=== PATIENT | female | born 1980 | race Caucasian/White ===

== ENCOUNTER → 2017-10-03 16:35 | Outpatient (CLI) | payer OTHER, SELFPAY ==
[2017-10-03 17:48] LABS: Absolute Lymphocyte Count 2.72 X10^3/ul (0.83-4.51); Absolute Neutrophil Count 3.6 X10^3/uL (2.0-7.7); Basophil# 0.04 X10^3/uL; Basophil% 0.6 % (0-1); Eosinophil# 0.13 X10^3/uL; Eosinophils% 1.9 % (0-5); Hematocrit 41.7 % (37-47); Hemoglobin 13.8 g/dl (12.0-15.0); Lymphocyte # 2.72 X10^3/ul (4.0); Lymphocyte % 39.2 % (19-41); Mean Corp Hgb Conc 33.1 g/gl (32-36); Mean Corpuscular Hgb 30.3 pg (27.0-32.0); Mean Corpuscular Volume 91.4 fL (81-99); Mean Platelet Vol. 10.2 fl (6.2-12.0); Monocyte# 0.42 X10^3/uL; Monocyte% 6.1 % (0-10); Neutrophil # 3.63 X10^3/uL (2.7-7.7); Neutrophil % 52.2 % (47-70); Platelet Count 293 K/mm3 (150-450); RBC Distribution Width CV 13.5 % (11.6-14.6); RBC Distribution Width SD 44.5 fl (35.1-43.9); Red Blood Count 4.56 M/mm3 (4.2-5.4); White Blood Count 6.9 K/mm3 (4.4-11.0)
[2017-10-03 17:56] LABS: POSITIVE COUNT NO; POSITIVE DIFFERENTIAL NO; POSITIVE MORPHOLOGY NO
[2017-10-03 18:37] LABS: Follicle Stimulating Hormone 31.9 mIU/mL; Thyroid Stim Hormone (TSH) 1.33 uIU/mL (0.358-3.74)
== END ==
PROVIDERS: Family Provider Internal Medicine; PCP Internal Medicine; Visit Provider Nurse Practitioner Women's Health
DX: R23.2 Flushing (principal); R63.5 Abnormal weight gain; R53.83 Other fatigue
CPT/HCPCS: 36415; 83001; 84443; 85025

== ENCOUNTER → 2018-05-03 06:56 | Outpatient (CLI) | payer OTHER, SELFPAY ==
--- NOTE | 2018-05-03 07:03 | BI_ITS ---
MAMMOGRAPHY - BILATERAL SCREENING REASON FOR EXAM: Female, 37 years old. Routine annual screening examination. PERTINENT HISTORY: Non-contributory. Bilateral breast pain. TECHNIQUE: Digital bilateral breast vicente (3D mammographic acquisition) in the CC and MLO projections. 2-D mediolateral oblique (MLO) and craniocaudad (CC) views of both breasts were obtained. CAD: Full Field Digital Mammography with Computer Added Detection was performed. COMPARISON: Comparison is made with prior study dated March 13, 2017 and August 25, 2014. FINDINGS: Breast Composition: There are scattered areas of fibroglandular density. There are no dominant masses or suspicious calcifications. Stable small bilateral benign appearing axillary lymph nodes. No other significant abnormalities are identified. There has been no significant change since the prior study. BI/SCREENING MAMM (CAD), BILAT IMPRESSION: Stable bilateral screening mammogram. Yearly follow-up mammogram recommended. (A) ASSESSMENT CATEGORY: BIRADS Category 2: Benign. A letter regarding these results will be sent to the patient by the facility within 30 days. Approximately 10% of breast cancers are not detected by mammography. A normal mammogram should not delay biopsy of a clinically suspicious abnormality. [id number] Electronically Signed: Juancarlos Bravo MD at 9:13 EST Tel [phone], Service support ,
== END ==
PROVIDERS: Family Provider Internal Medicine; PCP Internal Medicine; Referring Provider Nurse Practitioner Women's Health; Visit Provider Nurse Practitioner Women's Health
DX: Z12.31 Encounter for screening mammogram for malignant neoplasm of breast (principal)
CPT/HCPCS: 77063; 77067

== ENCOUNTER → 2019-02-13 07:16 | Outpatient (CLI) | payer OTHER, SELFPAY ==
[2019-02-06 16:24] VITALS: BMI 38.9
[2019-02-13 10:05] LABS: Absolute Lymphocyte Count 2.46 X10^3/uL (0.83-4.51); Absolute Neutrophil Count 3.4 X10^3/uL (2.0-7.7); Basophil# 0.06 X10^3/uL; Basophil% 0.9 % (0-1); Eosinophil# 0.19 X10^3/uL; Eosinophils% 2.9 % (0-5); Hematocrit 41.9 % (37-47); Hemoglobin 13.6 g/dL (12.0-15.0); Lymphocyte # 2.46 X10^3/ul (4.0); Lymphocyte % 37.7 % (19-41); Mean Corp Hgb Conc 32.5 g/dL (32-36); Mean Corpuscular Hgb 29.8 pg (27.0-32.0); Mean Corpuscular Volume 91.9 fL (81-99); Mean Platelet Vol. 9.9 fl (6.2-12.0); Monocyte# 0.46 X10^3/uL; NRBC Flagged by Analyzer 0 % (0-5); Neutrophil # 3.35 X10^3/uL (2.7-7.7); Neutrophil % 51.3 % (47-70); Platelet Count 325 K/mm3 (150-450); RBC Distribution Width CV 13.4 % (11.6-14.6); RBC Distribution Width SD 45.6 fl (35.1-43.9); Red Blood Count 4.56 M/mm3 (4.2-5.4); White Blood Count 6.5 K/mm3 (4.4-11.0)
[2019-02-13 10:23] LABS: AST(SGOT) 15 U/L (15-37); Alanine Aminotransfer ALT/SGPT 21 U/L (13-56); Albumin, Serum 3.6 g/dL (3.2-5.0); Alkaline Phosphatase 61 U/L (45-117); Anion Gap 7 (5-15); BUN 14 mg/dL (7-18); BUN/Creat Ratio 18.2 RATIO (10-20); Chloride 108 mmol/L (98-107); Cholesterol 221 mg/dL (200); Creatinine, Serum 0.77 mg/dL (0.55-1.02); EST Glomerular Filtration Rate 89 mL/min (>60); Est Glom Filt Rate - Afr Amer 108 mL/min (>60); Globulin 3.7 g/dL (2.2-4.2); Glucose 80 mg/dL (74-106); High Density Lipoprotein 52 mg/dL; Protein, Total 7.3 g/dL (6.4-8.2); Sodium Level 143 mmol/L (136-145); T4 Free Direct 0.92 ng/dL (0.76-1.46); Thyroid Stim Hormone (TSH) 1.92 uIU/mL (0.358-3.74); Triglycerides 120 mg/dL; Very Low Density Lipoprotein 24 mg/dL (5-40)
== END ==
PROVIDERS: Family Provider Internal Medicine; PCP Internal Medicine; Referring Provider Internal Medicine; Visit Provider Internal Medicine
DX: E66.9 Obesity, unspecified (principal); F41.8 Other specified anxiety disorders; N80.9 Endometriosis, unspecified
CPT/HCPCS: 36415; 80053; 80061; 84439; 84443; 85025

== ENCOUNTER → 2019-08-06 17:30 | Outpatient (CLI) | payer OTHER, SELFPAY ==
[2019-08-06 18:01] VITALS: BMI 38.9
[2019-08-07 13:07] LABS: Amphetamine Urine VISTA NEGATIVE (<1000 ng/mL); Barbiturate Urine VISTA NEGATIVE (< 200 ng/mL); Benzodiazepine Urine VISTA NEGATIVE (< 200 ng/mL); Cocaine Urine VISTA NEGATIVE (< 300 ng/mL); Ecstacy Urine VISTA NEGATIVE (< 500 ng/mL); Methadone Urine VISTA NEGATIVE (< 300 ng/mL); PCP Urine VISTA NEGATIVE (< 25 ng/mL); THC Urine VISTA NEGATIVE (< 50 ng/mL)
[2019-08-07 13:08] LABS: Vista UDS pH Range 6
== END ==
PROVIDERS: PCP Internal Medicine; Referring Provider Internal Medicine; Visit Provider Internal Medicine
DX: F98.8 Other specified behavioral and emotional disorders with onset usually occurring in childhood and adolescence (principal)
CPT/HCPCS: 80307

== ENCOUNTER → 2019-10-23 07:08 | Outpatient (CLI) | payer OTHER, SELFPAY ==
[2019-08-28 08:48] VITALS: BMI 38.9
--- NOTE | 2019-10-23 07:10 | BI_ITS ---
MAMMOGRAPHY - BILATERAL SCREENING REASON FOR EXAM: Female, 39 years old. Routine annual screening examination. PERTINENT HISTORY: Non-contributory. TECHNIQUE: Digital bilateral breast hannah (3D mammographic acquisition) in the CC and MLO projections. 2-D mediolateral oblique (MLO) and craniocaudad (CC) views of both breasts were obtained. CAD: Full Field Digital Mammography with Computer Added Detection was performed. COMPARISON: Comparison is made with prior study dated May 03, 2018 and March 13, 2017. FINDINGS: Breast Composition: There are scattered areas of fibroglandular density. There are no dominant masses or suspicious calcifications. No other significant abnormalities are identified. There has been no significant change since the prior study. BI/SCREEN MAMM (CAD) W/HANNAH BILAT IMPRESSION: Stable bilateral screening mammogram. Yearly follow-up mammogram recommended. (A) ASSESSMENT CATEGORY: Approximately 10% of breast cancers are not detected by mammography. A normal mammogram should not delay biopsy of a clinically suspicious abnormality. [id number] Electronically Signed: Juancarlos Bravo, at 8:57 EDT , Service support ,
== END ==
PROVIDERS: PCP Internal Medicine; Referring Provider Nurse Practitioner Women's Health; Visit Provider Nurse Practitioner Women's Health
DX: Z12.31 Encounter for screening mammogram for malignant neoplasm of breast (principal)
CPT/HCPCS: 77063; 77067

== ENCOUNTER → 2020-02-27 07:34 | Outpatient (CLI) | payer OTHER, SELFPAY ==
[2020-02-26 11:55] VITALS: BMI 38.9
[2020-02-27 10:14] LABS: Absolute Lymphocyte Count 2.56 X10^3/uL (0.83-4.51); Absolute Neutrophil Count 3.7 X10^3/uL (2.0-7.7); Basophil# 0.08 X10^3/uL; Basophil% 1.2 % (0-1); Eosinophil# 0.19 X10^3/uL; Eosinophils% 2.7 % (0-5); Hematocrit 42.1 % (37-47); Hemoglobin 13.7 g/dL (12.0-15.0); Lymphocyte # 2.56 X10^3/ul (4.0); Lymphocyte % 36.8 % (19-41); Mean Corp Hgb Conc 32.5 g/dL (32-36); Mean Corpuscular Hgb 30.6 pg (27.0-32.0); Mean Platelet Vol. 9.9 fl (6.2-12.0); Monocyte# 0.42 X10^3/uL; NRBC Flagged by Analyzer 0 % (0-5); Neutrophil # 3.69 X10^3/uL (2.7-7.7); Neutrophil % 53.2 % (47-70); Platelet Count 352 K/mm3 (150-450); RBC Distribution Width CV 13.6 % (11.6-14.6); Red Blood Count 4.48 M/mm3 (4.2-5.4); Vitamin B12 384 pg/mL (211-911); Vitamin D,25 Hydroxy 32.8 ng/mL
[2020-02-27 10:16] LABS: AST(SGOT) 12 U/L (15-37); Alanine Aminotransfer ALT/SGPT 17 U/L (13-56); Albumin, Serum 3.7 g/dL (3.2-5.0); Alkaline Phosphatase 65 U/L (45-117); Anion Gap 5 (5-15); BUN 17 mg/dL (7-18); BUN/Creat Ratio 22.3 RATIO (10-20); Calcium,Total 9.2 mg/dL (8.5-10.1); Chloride 106 mmol/L (98-107); Cholesterol 251 mg/dL (200); Creatinine, Serum 0.76 mg/dL (0.55-1.02); EST Glomerular Filtration Rate 90 mL/min (>60); Est Glom Filt Rate - Afr Amer 108 mL/min (>60); Globulin 3.8 g/dL (2.2-4.2); Glucose 81 mg/dL (74-106); High Density Lipoprotein 59 mg/dL; Potassium 3.7 mmol/L (3.5-5.1); Protein, Total 7.5 g/dL (6.4-8.2); Sodium Level 140 mmol/L (136-145); T4 Free Direct 0.89 ng/dL (0.76-1.46); Thyroid Stim Hormone (TSH) 1.84 uIU/mL (0.358-3.74); Triglycerides 185 mg/dL; Very Low Density Lipoprotein 37 mg/dL (5-40)
== END ==
PROVIDERS: PCP Internal Medicine; Referring Provider Nurse Practitioner Family; Visit Provider Nurse Practitioner Family
DX: I10 Essential (primary) hypertension (principal); E78.5 Hyperlipidemia, unspecified; F41.8 Other specified anxiety disorders; E56.9 Vitamin deficiency, unspecified; R53.83 Other fatigue
CPT/HCPCS: 36415; 80053; 80061; 82306; 82607; 84439; 84443; 85025

== ENCOUNTER → 2020-04-23 12:11 | Outpatient (CLI) | payer OTHER, SELFPAY ==
[2020-04-23 15:31] LABS: Amphetamine Urine VISTA NEGATIVE (<1000 ng/mL); Barbiturate Urine VISTA NEGATIVE (< 200 ng/mL); Benzodiazepine Urine VISTA NEGATIVE (< 200 ng/mL); Cocaine Urine VISTA NEGATIVE (< 300 ng/mL); Ecstacy Urine VISTA NEGATIVE (< 500 ng/mL); Methadone Urine VISTA NEGATIVE (< 300 ng/mL); PCP Urine VISTA NEGATIVE (< 25 ng/mL); THC Urine VISTA NEGATIVE (< 50 ng/mL); Vista UDS pH Range 7
== END ==
PROVIDERS: PCP Internal Medicine; Referring Provider Nurse Practitioner Family; Visit Provider Nurse Practitioner Family
DX: F98.8 Other specified behavioral and emotional disorders with onset usually occurring in childhood and adolescence (principal)
CPT/HCPCS: 80307

== ENCOUNTER → 2020-04-28 12:13 | Outpatient (CLI) | payer OTHER, SELFPAY | PROVIDERS: PCP Internal Medicine; Referring Provider Nurse Practitioner Family; Visit Provider Nurse Practitioner Family | DX: F98.8 Other specified behavioral and emotional disorders with onset usually occurring in childhood and adolescence (principal); Z79.899 Other long term (current) drug therapy | CPT/HCPCS: 36415 ==

== ENCOUNTER → 2020-08-19 | Outpatient (CLI) | payer OTHER, SELFPAY ==
[2020-08-19 18:10] VITALS: BMI 40.4
[2020-08-20 12:29] LABS: Amphetamine Urine VISTA POSITIVE (<1000 ng/mL); Barbiturate Urine VISTA NEGATIVE (< 200 ng/mL); Benzodiazepine Urine VISTA NEGATIVE (< 200 ng/mL); Cocaine Urine VISTA NEGATIVE (< 300 ng/mL); Ecstacy Urine VISTA NEGATIVE (< 500 ng/mL); Methadone Urine VISTA NEGATIVE (< 300 ng/mL); PCP Urine VISTA NEGATIVE (< 25 ng/mL); THC Urine VISTA NEGATIVE (< 50 ng/mL); Vista UDS pH Range 5
== END | disposition home or self-care (01) ==
LOC: LABSPEC 08-20 10:21
PROVIDERS: PCP Internal Medicine; Referring Provider Internal Medicine; Visit Provider Internal Medicine
DX: F98.8 Other specified behavioral and emotional disorders with onset usually occurring in childhood and adolescence (principal)
CPT/HCPCS: 80307

== ENCOUNTER → 2020-12-01 06:59 | Outpatient (CLI) | payer OTHER, SELFPAY ==
[2020-11-25 16:55] VITALS: BMI 41.5
--- NOTE | 2020-12-01 07:02 | BI_ITS ---
MAMMOGRAPHY - BILATERAL SCREENING REASON FOR EXAM: Female, 40 years old. Routine annual screening examination. PERTINENT HISTORY: Non-contributory. TECHNIQUE: Digital bilateral breast hannah (3D mammographic acquisition) in the CC and MLO projections. 2-D mediolateral oblique (MLO) and craniocaudad (CC) views of both breasts were obtained. CAD: Full Field Digital Mammography with Computer Added Detection was performed. COMPARISON: Comparison is made with prior study dated 10/23/2019 and 05/03/2018. FINDINGS: Breast Composition: There are scattered areas of fibroglandular density. There are no dominant masses or suspicious calcifications. Stable benign small bilateral axillary lymph nodes. No other significant abnormalities are identified. There has been no significant change since the prior study. BI/SCRN MAMM (CAD)W/HANNAH BILAT IMPRESSION: Stable bilateral screening mammogram. Yearly follow-up mammogram recommended. (A) ASSESSMENT CATEGORY: BIRADS Category 2: Benign. A letter regarding these results will be sent to the patient by the facility within 30 days. Approximately 10% of breast cancers are not detected by mammography. A normal mammogram should not delay biopsy of a clinically suspicious abnormality. [id number] Electronically Signed: Juancarlos Bravo MD at 8:13 EDT , Service support ,
[2020-12-01 07:58] LABS: Anion Gap 4 (5-15); BUN 12 mg/dL (7-18); BUN/Creat Ratio 15.1 RATIO (10-20); Calcium,Total 9.2 mg/dL (8.5-10.1); Chloride 108 mmol/L (98-107); EST Glomerular Filtration Rate 85 mL/min (>60); Est Glom Filt Rate - Afr Amer 103 mL/min (>60); Glucose 86 mg/dL (74-106); Potassium 4.2 mmol/L (3.5-5.1); Sodium Level 141 mmol/L (136-145)
[2020-12-01 15:44] LABS: Xtra Tube EP Lab EXTRA TUBE
== END ==
PROVIDERS: PCP Internal Medicine; Referring Provider Internal Medicine; Visit Provider Internal Medicine
DX: Z12.31 Encounter for screening mammogram for malignant neoplasm of breast (principal); I10 Essential (primary) hypertension
CPT/HCPCS: 36415; 77063; 77067; 80048

== ENCOUNTER → 2021-02-05 10:06 | Outpatient (CLI) | payer OTHER, SELFPAY ==
--- NOTE | 2021-02-05 10:08 | US_ITS ---
STUDY: ULTRASOUND OF THE FEMALE PELVIS - COMPLETE REASON FOR EXAM: Female, 40 years old. Pelvic pain LMP: Unknown. TECHNIQUE: Transabdominal and Transvaginal TECHNICAL QUALITY: Adequate. COMPARISON: None. FINDINGS: The uterus is absent consistent with previous hysterectomy. Both ovaries are not visualized. Status post bilateral nephrectomy. There is no fluid in the cul-de-sac. The pre void volume of the bladder was 584 ml. US/Pelvic (Non ) IMPRESSION: 1. Status post total abdominal hysterectomy. 2. No pelvic mass is seen. Electronically Signed: Mando Saucedo MD at 15:35 EDT Tel , Service support ,
== END ==
PROVIDERS: PCP Internal Medicine; Referring Provider Nurse Practitioner Women's Health; Visit Provider Nurse Practitioner Women's Health
DX: R10.2 Pelvic and perineal pain (principal); Z90.710 Acquired absence of both cervix and uterus
CPT/HCPCS: 76856

== ENCOUNTER → 2021-03-04 | Outpatient (CLI) | payer OTHER, SELFPAY ==
[2021-03-04 12:50] LABS: Amphetamine Urine VISTA POSITIVE (<1000 ng/mL); Barbiturate Urine VISTA NEGATIVE (< 200 ng/mL); Benzodiazepine Urine VISTA NEGATIVE (< 200 ng/mL); Cocaine Urine VISTA NEGATIVE (< 300 ng/mL); Ecstacy Urine VISTA NEGATIVE (< 500 ng/mL); Methadone Urine VISTA NEGATIVE (< 300 ng/mL); PCP Urine VISTA NEGATIVE (< 25 ng/mL); THC Urine VISTA NEGATIVE (< 50 ng/mL); Vista UDS pH Range 6
== END | disposition home or self-care (01) ==
LOC: LABSPEC 08:58
PROVIDERS: PCP Internal Medicine; Referring Provider Internal Medicine; Visit Provider Internal Medicine
DX: F98.8 Other specified behavioral and emotional disorders with onset usually occurring in childhood and adolescence (principal)
CPT/HCPCS: 80307

== ENCOUNTER 2021-06-25 10:45 | Outpatient (CLI) | payer OTHER, SELFPAY ==
[2021-06-25 11:24] LABS: Absolute Lymphocyte Count 2.42 X10^3/uL (0.83-4.51); Absolute Neutrophil Count 4.5 X10^3/uL (2.0-7.7); Basophil# 0.05 X10^3/uL; Basophil% 0.6 % (0-1); Eosinophil# 0.42 X10^3/uL; Eosinophils% 5.5 % (0-5); Hematocrit 42.2 % (37-47); Hemoglobin 13.5 g/dL (12.0-15.0); Lymphocyte # 2.42 X10^3/ul (0.83-4.51); Lymphocyte % 31.4 % (19-41); Mean Corpuscular Hgb 28.9 pg (27.0-32.0); Mean Corpuscular Volume 90.4 fL (81-99); Mean Platelet Vol. 9.4 fl (6.2-12.0); Monocyte% 3.9 % (0-10); NRBC Flagged by Analyzer 0 % (0-5); Neutrophil % 58.5 % (47-70); Platelet Count 374 K/mm3 (150-450); RBC Distribution Width CV 14.2 % (11.6-14.6); RBC Distribution Width SD 47.3 fl (35.1-43.9); Red Blood Count 4.67 M/mm3 (4.2-5.4); White Blood Count 7.7 K/mm3 (4.4-11.0)
[2021-06-25 11:46] LABS: ALB/GLOB Ratio 0.8 RATIO (0.9-2.4); AST(SGOT) 12 U/L (15-37); Alanine Aminotransfer ALT/SGPT 22 U/L (13-56); Albumin, Serum 3.4 g/dL (3.2-5.0); Alkaline Phosphatase 84 U/L (45-117); Anion Gap 4 (5-15); BUN 15 mg/dL (7-18); BUN/Creat Ratio 17.8 RATIO (10-20); Calcium,Total 9.3 mg/dL (8.5-10.1); Chloride 106 mmol/L (98-107); Creatinine, Serum 0.84 mg/dL (0.55-1.02); EST Glomerular Filtration Rate 79 mL/min (>60); Est Glom Filt Rate - Afr Amer 96 mL/min (>60); Globulin 4.3 g/dL (2.2-4.2); Glucose 122 mg/dL (74-106); Potassium 3.9 mmol/L (3.5-5.1); Protein, Total 7.7 g/dL (6.4-8.2); Sodium Level 139 mmol/L (136-145)
== END 2021-06-25 23:59 | disposition short-term general hospital (02) ==
LOC: LAB 10:47
PROVIDERS: PCP Internal Medicine; Referring Provider Internal Medicine; Visit Provider Internal Medicine
DX: I10 Essential (primary) hypertension (principal)
CPT/HCPCS: 36415; 80053; 85025

== ENCOUNTER 2021-07-04 09:05 | Outpatient (CLI) | payer OTHER, SELFPAY ==
--- NOTE | 2021-07-04 09:06 | US_ITS ---
STUDY: ABDOMINAL ULTRASOUND - RIGHT UPPER QUADRANT REASON FOR VISIT: Female, 40 years old RUQ Pain TECHNIQUE: Ultrasound evaluation of the right upper quadrant was performed with real-time and static soriano-scale imaging. TECHNICAL QUALITY: Adequate. COMPARISON: None. FINDINGS: Liver: The liver is enlarged and measures 19.7 cm. There is increased echogenicity consistent with fatty infiltration. The bile ducts are within normal limits. There is hepatic color flow. The direction of portal flow is hepatopetal. There is no demonstrated mass lesion. Gallbladder: Normal distended gallbladder. The gallbladder wall measures 2.1 mm. There is a negative sonographic Nguyen''s sign. There is no pericholecystic fluid. There are no gallstones. Common Bile Duct (C.B.D.): The common bile duct measures 4.4 mm. Pancreas: Normal size of the head, body and tail of the pancreas. There is increased echogenicity of the pancreas. There is no demonstrated pancreatic mass or cyst. Right Kidney: Normal size of the right kidney. The right kidney measures 11 cm x 5.2 cm x 5 cm. Normal renal cortex. The right cortex measures 1.5 cm. There is no demonstrated renal mass or cyst. There is no right hydronephrosis. US/Abdomen Limited IMPRESSION: Mild hepatomegaly and fatty infiltration of the liver. Electronically Signed: Juancarlos Bravo MD at 10:44 EST , Service support ,
== END 2021-07-04 23:59 | disposition short-term general hospital (02) ==
PROVIDERS: PCP Internal Medicine; Referring Provider Internal Medicine; Visit Provider Internal Medicine
DX: G47.10 Hypersomnia, unspecified (principal); R10.11 Right upper quadrant pain
CPT/HCPCS: 76705; 95806

== ENCOUNTER → 2021-11-02 | Outpatient (CLI) | payer OTHER, SELFPAY ==
--- NOTE | 2021-11-02 17:10 | RAD_ITS ---
STUDY: LEFT FIRST TOE X-RAY SERIES OF 1722 HOURS ON 11/02/2021 REASON FOR EXAM: 41-year-old female with left first toe pain. TECHNIQUE: 4 view(s) of the toe were obtained. COMPARISON: None. FINDINGS: No fractures or dislocations. No osteomyelitis or periostitis. No osseous lytic, sclerotic or mass lesions. The joint spaces have a normal appearance. There is no evidence of a bunion. There are no findings of gout. There is mild generalized soft tissue swelling of the first toe. RAD/Toe(s) Min 2 Views IMPRESSION: 1. No fractures or dislocations. 2. Mild generalized soft tissue swelling of the left first toe. 3. No evidence of a bunion or gout. 4. No inflammatory or neoplastic changes. Electronically Signed: Junior Hernandez MD at 18:14 EDT ,
== END | disposition home or self-care (01) ==
LOC: MTRAD 17:08
PROVIDERS: PCP Internal Medicine; Referring Provider Nurse Practitioner Family; Visit Provider Nurse Practitioner Family
DX: M79.675 Pain in left toe(s) (principal)
CPT/HCPCS: 73660

== ENCOUNTER → 2021-11-07 | Outpatient (CLI) | payer OTHER, SELFPAY ==
[2021-11-07 15:55] LABS: T4 Free Direct 0.89 ng/dL (0.76-1.46); Thyroid Stim Hormone (TSH) 1.49 uIU/mL (0.358-3.74)
== END | disposition home or self-care (01) ==
LOC: MTLAB 13:25
PROVIDERS: PCP Internal Medicine; Referring Provider Internal Medicine; Visit Provider Internal Medicine
DX: F32.A Depression, unspecified (principal); F41.9 Anxiety disorder, unspecified
CPT/HCPCS: 36415; 84439; 84443

== ENCOUNTER → 2022-02-01 | Outpatient (CLI) | payer OTHER, SELFPAY ==
[2022-02-01 15:51] LABS: Anion Gap 6 (5-15); BUN 12 mg/dL (7-18); BUN/Creat Ratio 16.1 RATIO (10-20); Calcium,Total 9.5 mg/dL (8.5-10.1); Chloride 102 mmol/L (98-107); Creatinine, Serum 0.75 mg/dL (0.55-1.02); EST Glomerular Filtration Rate 91 mL/min (>60); Est Glom Filt Rate - Afr Amer 110 mL/min (>60); Glucose 79 mg/dL (74-106); Potassium 3.9 mmol/L (3.5-5.1); Sodium Level 137 mmol/L (136-145)
[2022-02-01 15:52] LABS: Hemoglobin A1c 5.5 % (3.8-5.6)
== END | disposition home or self-care (01) ==
LOC: BIMLAB 11:52
PROVIDERS: PCP Internal Medicine; Visit Provider Internal Medicine
DX: I10 Essential (primary) hypertension (principal); E66.9 Obesity, unspecified
CPT/HCPCS: 36415; 80048; 83036

== ENCOUNTER → 2022-04-27 | Outpatient (CLI) | payer OTHER, SELFPAY ==
--- NOTE | 2022-04-27 07:26 | BI_ITS ---
MAMMOGRAPHY - BILATERAL SCREENING REASON FOR EXAM: Female, 41 years old. Routine annual screening examination. PERTINENT HISTORY: Non-contributory. TECHNIQUE: Digital bilateral breast hannah (3D mammographic acquisition) in the CC and MLO projections. 2-D mediolateral oblique (MLO) and craniocaudad (CC) views of both breasts were obtained. CAD: Full Field Digital Mammography with Computer Added Detection was performed. COMPARISON: Comparison is made with prior study dated 12/01/2020 and 10/23/2019. FINDINGS: Breast Composition: There are scattered areas of fibroglandular density. There are no dominant masses or suspicious calcifications. Stable small benign-appearing bilateral axillary lymph nodes. No other significant abnormalities are identified. There has been no significant change since the prior study. BI/SCRN MAMM (CAD)W/HANNAH BILAT IMPRESSION: Stable bilateral screening mammogram. Yearly follow-up mammogram recommended. (A) ASSESSMENT CATEGORY: BIRADS Category 2: Benign. A letter regarding these results will be sent to the patient by the facility within 30 days. Approximately 10% of breast cancers are not detected by mammography. A normal mammogram should not delay biopsy of a clinically suspicious abnormality. [id number] Electronically Signed: Juancarlos Bravo MD at 8:40 EST ,
== END | disposition home or self-care (01) ==
LOC: OPBI 07:25
PROVIDERS: PCP Internal Medicine; Visit Provider Nurse Practitioner Women's Health
DX: Z12.31 Encounter for screening mammogram for malignant neoplasm of breast (principal)
CPT/HCPCS: 77063; 77067

== ENCOUNTER → 2022-05-15 | Outpatient (CLI) | payer OTHER, SELFPAY ==
--- NOTE | 2022-05-15 09:15 | RAD_ITS ---
INDICATION: back pain with radiation RLE, nontraumatic EXAMINATION/TECHNIQUE: X-RAY - XR Spine Lumbar 2 or 3 Views COMPARISON: None. FINDINGS: VERTEBRAE: Preserved vertebral body height. No fracture. No spondylolisthesis. Preservation of the normal lumbar lordosis. No significant facet arthropathy. DISCS: Mild loss of disc space height at L3-4. INCLUDED ABDOMEN: Included bowel gas pattern is non-obstructive. RAD/Lumbar Spine 2 or 3 Views IMPRESSION: Degenerative disc changes at L3-4. Electronically Signed: Esteban Sheehan MD at 17:34 EST ,
--- NOTE | 2022-05-15 09:15 | RAD_ITS ---
INDICATION: Hip pain R >L, no known injury EXAMINATION/TECHNIQUE: X-RAY - BILATERAL XR Hips Bilateral with Pelvis when performed; Min 5 Views 5 VIEWS COMPARISON: None. FINDINGS: SOFT TISSUES: No soft tissue swelling or gas. No radiopaque foreign body. BONES/JOINTS: No acute fracture. Preservation of the hip joint spaces. No sclerotic or destructive changes observed. RAD/Hips B/L min 2 views w/ Pelvis IMPRESSION: Unremarkable study. Electronically Signed: Esteban Sheehan MD at 17:33 EST ,
== END | disposition home or self-care (01) ==
LOC: MTRAD 09:14
PROVIDERS: PCP Internal Medicine; Referring Provider Physician Assistant; Visit Provider Physician Assistant
DX: M25.551 Pain in right hip (principal); M54.50 Low back pain, unspecified; R20.2 Paresthesia of skin
CPT/HCPCS: 72100; 73521

== ENCOUNTER → 2022-07-05 | Outpatient (CLI) | payer OTHER, SELFPAY ==
--- NOTE | 2022-07-05 10:45 | NEURO ---
NCS and/or EMG Patient Report Ordering Doctor: Yumiko Monteiro DATE OF SERVICE: 07/05/22 Dian presents for electrodiagnostic testing of the right lower limb. She has complaints of numbnes, tingling and burning pain along the right lateral thigh. Electrodiagnostic findings: Right peroneal motor nerve demonstrates normal distal latency and amplitude. Normal right tibial motor response.'s right sural and superficial peroneal responses are normal. Prolonged right lateral femoral cutaneous nerve latency. Normal tibial and peroneal F-wave. H reflex normal bilaterally. Needle EMG testing shows no evidence of denervation with normal motor unit action potentials. Electrodiagnostic assessment: This is an abnormal study in the right lower limb. 1. Electrodiagnostic findings are consistent with right-sided lateral femoral cutaneous nerve neuropathy, i.e. meralgia paresthetica. 2. No electrodiagnostic evidence is noted for peroneal or tibial neuropathy. No electrodiagnostic evidence is noted for lumbosacral radiculopathy.
== END | disposition home or self-care (01) ==
PROVIDERS: PCP Internal Medicine; Visit Provider Physician Assistant
DX: R20.2 Paresthesia of skin (principal)
CPT/HCPCS: 95886; 95909; 95910

== ENCOUNTER → 2022-09-28 | Outpatient (CLI) | payer OTHER, SELFPAY ==
[2022-09-28 10:18] LABS: Absolute Lymphocyte Count 2.28 X10^3/uL (0.83-4.51); Absolute Neutrophil Count 4.8 X10^3/uL (2.0-7.7); Basophil# 0.07 X10^3/uL; Basophil% 0.9 % (0-1); Eosinophil# 0.15 X10^3/uL; Eosinophils% 1.9 % (0-5); Hematocrit 41.1 % (37-47); Hemoglobin 13.3 g/dL (12.0-15.0); Lymphocyte # 2.28 X10^3/ul (0.83-4.51); Lymphocyte % 29.2 % (19-41); Mean Corp Hgb Conc 32.4 g/dL (32-36); Mean Corpuscular Volume 89.7 fL (81-99); Mean Platelet Vol. 10.3 fl (6.2-12.0); Monocyte# 0.47 X10^3/uL; NRBC Flagged by Analyzer 0 % (0-5); Neutrophil # 4.81 X10^3/uL (2.7-7.7); Neutrophil % 61.7 % (47-70); Platelet Count 332 K/mm3 (150-450); RBC Distribution Width CV 14.9 % (11.6-14.6); RBC Distribution Width SD 49.1 fl (35.1-43.9); Red Blood Count 4.58 M/mm3 (4.2-5.4); White Blood Count 7.8 K/mm3 (4.4-11.0)
[2022-09-28 10:30] LABS: AST(SGOT) 74 U/L (15-37); Alanine Aminotransfer ALT/SGPT 45 U/L (13-56); Albumin, Serum 3.7 g/dL (3.2-5.0); Alkaline Phosphatase 74 U/L (45-117); Anion Gap 4 (5-15); BUN 14 mg/dL (7-18); BUN/Creat Ratio 19.4 RATIO (10-20); Calcium,Total 9.3 mg/dL (8.5-10.1); Chloride 106 mmol/L (98-107); Cholesterol 250 mg/dL (200); Creatinine, Serum 0.72 mg/dL (0.55-1.02); EST Glomerular Filtration Rate 94 mL/min (>60); Est Glom Filt Rate - Afr Amer 114 mL/min (>60); Globulin 3.7 g/dL (2.2-4.2); Glucose 90 mg/dL (74-106); High Density Lipoprotein 56 mg/dL; Potassium 4.1 mmol/L (3.5-5.1); Protein, Total 7.4 g/dL (6.4-8.2); Sodium Level 135 mmol/L (136-145); Triglycerides 162 mg/dL; Very Low Density Lipoprotein 32 mg/dL (5-40)
== END | disposition home or self-care (01) ==
LOC: MTLAB 07:31
PROVIDERS: PCP Internal Medicine; Referring Provider Internal Medicine; Visit Provider Internal Medicine
DX: E78.5 Hyperlipidemia, unspecified (principal)
CPT/HCPCS: 36415; 80053; 80061; 85025

== ENCOUNTER → 2022-12-25 | Outpatient (CLI) | payer OTHER, SELFPAY ==
[2022-12-25 13:04] LABS: AST(SGOT) 13 U/L (15-37); Alanine Aminotransfer ALT/SGPT 23 U/L (13-56); Albumin, Serum 3.5 g/dL (3.2-5.0); Alkaline Phosphatase 73 U/L (45-117); Anion Gap 4 (5-15); BUN 12 mg/dL (7-18); BUN/Creat Ratio 14.5 RATIO (10-20); Calcium,Total 9.1 mg/dL (8.5-10.1); Chloride 106 mmol/L (98-107); Creatinine, Serum 0.83 mg/dL (0.55-1.02); EST Glomerular Filtration Rate 80 mL/min (>60); Est Glom Filt Rate - Afr Amer 97 mL/min (>60); Globulin 3.5 g/dL (2.2-4.2); Glucose 91 mg/dL (74-106); Potassium 4.3 mmol/L (3.5-5.1); Sodium Level 138 mmol/L (136-145)
[2022-12-25 13:05] LABS: Amphetamine Urine VISTA POSITIVE (<1000 ng/mL); Barbiturate Urine VISTA NEGATIVE (< 200 ng/mL); Benzodiazepine Urine VISTA NEGATIVE (< 200 ng/mL); Cocaine Urine VISTA NEGATIVE (< 300 ng/mL); Ecstacy Urine VISTA NEGATIVE (< 500 ng/mL); Methadone Urine VISTA NEGATIVE (< 300 ng/mL); PCP Urine VISTA NEGATIVE (< 25 ng/mL); THC Urine VISTA NEGATIVE (< 50 ng/mL); Vista UDS pH Range 6
== END | disposition home or self-care (01) ==
LOC: BIMLAB 08:43
PROVIDERS: PCP Internal Medicine; Referring Provider Internal Medicine; Visit Provider Internal Medicine
DX: I10 Essential (primary) hypertension (principal); F98.8 Other specified behavioral and emotional disorders with onset usually occurring in childhood and adolescence
CPT/HCPCS: 36415; 80053; 80307

== ENCOUNTER 2023-02-14 18:50 | Emergency (ER) | payer OTHER, SELFPAY ==
[2023-02-14 18:51] VITALS: BP 138/88; PULSE 97; RESP 18; TEMP 36.3; O2SAT 100; BMI 43.5
--- NOTE | 2023-02-14 19:13 | RAD_ITS ---
STUDY: X-RAY CHEST REASON FOR EXAM: Female, 42 years old. cough TECHNIQUE: Single AP portable view of the chest. COMPARISON: None. FINDINGS: The lungs are clear and expanded. There is no demonstrated pleural abnormality. Normal size heart. Normal mediastinum and tristan. Normal visualized pulmonary arteries. Normal visualized aortic arch and descending thoracic aorta. Normal visualized thoracic spine. Normal visualized ribs, clavicles, and shoulders. There is no demonstrated abnormality of the visualized soft tissue structures of the upper abdomen. RAD/Chest 1 View (Portable) IMPRESSION: Normal x-ray examination of the chest. Electronically Signed: Tim Kramer MD at 19:34 EDT ,
--- NOTE | 2023-02-14 19:15 | EX.ED.DYSGE1 ---
HPI History of Present Illness Chief Complaint: Sore Throat Narrative Narrative: 42-year-old female who denies significant past medical history presents with viral syndrome like symptoms. She states this morning she began having a headache. It progressed to a sore throat this afternoon. She felt feverish. She started develop myalgias and arthralgias and body aches in her arms and legs. She also has a nonproductive cough. She states her chest feels tight with mild shortness of breath. Out of all the symptoms she states the myalgias are the worst. She last took ibuprofen or Tylenol over 6 hours ago. She presents with a vast array of symptoms consistent with viral syndrome. [facility] Medical History ADD (attention deficit disorder) Anemia Anxiety and depression Dermatitis Endometriosis Gastrointestinal problem H/O emotional problems Headache History of migraine headaches Hypersomnolence IBS (irritable bowel syndrome) Iron deficiency Morbid obesity Obesity (BMI 30-39.9) JOSIANE (obstructive sleep apnea) RUQ pain Tobacco abuse Vitamin D deficiency Home Medications estradiol 2 mg tablet See Rx Instructions .Route .COMPLEX #90 tabs 03/06/22 [Rx Last Taken Unknown] alprazolam 0.25 mg tablet (Xanax) 0.25 mg PO DAILY PRN anxiety #10 tabs 03/15/22 [Rx Last Taken Unknown] aripiprazole 5 mg tablet 7.5 mg (1.5 x 5 mg) PO DAILY #135 tabs 12/15/22 [Rx Last Taken Unknown] sertraline 100 mg tablet See Rx Instructions .Route .COMPLEX #180 tabs 01/09/23 [Rx Last Taken Unknown] gabapentin 300 mg capsule 300 mg PO TID #90 caps 01/17/23 [Rx Last Taken Unknown] dextroamphetamine-amphetamine 10 mg tablet (Adderall) 10 mg PO BID 30 days #60 tabs 01/29/23 [Rx Last Taken Unknown] Allergy/AdvReac Type Severity Reaction Status Date / Time amoxicillin Allergy Other Verified 02/14/23 18:51 Penicillins Allergy Hives Verified 02/14/23 18:51 Family History Father Diabetes Grandfather Cardiomyopathy Other Heart disease depression Surgical History History of total vaginal hysterectomy (TVH) Social History Smoking Status: Current every day smoker tobacco type: cigarettes alcohol intake: current alcohol intake frequency: holidays/special occasions only substance use type: does not use caffeine: Yes what type of physical activity do you participate in: walking frequency: 1-2 times per week seatbelt use: never do you feel safe at home: Yes additional social history: 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 HEENT: Positive sore throat. No neck pain. No loss of vision. No rhinorrhea. Cardiovascular: No chest pain. No palpitations. No pedal edema. Respiratory: Nonproductive cough, mild chest tightness and shortness of breath. Abdominal: No abdominal pain. No nausea. No vomiting. Genitourinary: No dysuria. No hematuria. Musculoskeletal: Multiple myalgias and arthralgias Neurologic: No headaches. No dizziness. No lightheadedness. Skin: No rash. No change in color. Psychiatric: No depression. No anxiety. EXAM Physical Exam Narrative Exam Narrative: Afebrile. Vital signs noted. HEENT: Normocephalic. Atraumatic. PERRL, EOMI. Neck soft and supple. No point tenderness or step off. Mild nasal congestion. Airway patent. No meningismus. Mild pharyngeal erythema. No drooling or trismus. Cardiovascular: Regular rate and rhythm. No murmurs, rubs, or gallops appreciated. Respiratory: No tachypnea. Lungs clear to auscultation bilaterally. Gastrointestinal: Abdomen soft, nontender, with normoactive bowel sounds. No rebound or guarding. Neurological: Awake. Alert. Nonfocal, nonlateralizing. Skin: No rash. Normal color. No pallor. Musculoskeletal: No pedal edema. Full range of motion extremities. Const Vital Signs: 02/14/23 18:51 02/14/23 19:28 02/14/23 19:53 Temperature 97.3 F L 98.3 F Temperature Source Temporal Temporal Pulse Rate 97 97 Respiratory Rate 18 18 Respiratory Effort Normal Respiratory Pattern Normal Blood Pressure 138/88 H 142/73 H Blood Pressure Mean 104 96 Pulse Ox 100 96 Oxygen Delivery Method Room Air Room Air MDM MDM MDM Narrative Medical decision making narrative: Suspicion is high for viral syndrome, could be COVID or influenza. She was swabbed for COVID and influenza a and B. Her pulse ox is 100% on room air without evidence of hypoxia. Lower on the differential is pneumonia. Chest x-ray in 1 view will be obtained to help rule this out. She was administered Toradol 60 mg intramuscularly for her body aches and pains. I reviewed her chest x-ray in 1 view and see no evidence of consolidation or pneumothorax on my independent interpretation. I reviewed the radiology report which confirms my independent interpretation. I reviewed her respiratory swabs/laboratory work and she is positive for COVID-19. At this point time, treatment be symptomatic. I offered to write her a prescription for an inhaler but she declined. She is not hypoxic and I do not feel that she requires Decadron. Treat will be symptomatic with [id number] medications. She will isolate for 5 days and return to work if she is asymptomatic at that time. Otherwise she will follow-up with her primary care physician. I feel she can be discharged safely home with follow-up. Return instructions were reviewed. Disposition is discharged home in stable condition. Lab Data Attestation: I reviewed the patient's lab results. Lab results narrative: Respiratory swab positive for COVID-19. Radiography Diagnostic Testing: Clinical Impression(s) from Imaging Studies Chest X-Ray 02/14/23 19:13 IMPRESSION: Normal x-ray examination of the chest. Electronically Signed: Tim Kramer MD at 19:34 EDT , Discharge Plan Triage Chief Complaint: Sore Throat Other Complaint: General Illness Headache ED Provider: Jeancarlos Pedraza Dx/Rx/DC Orders Clinical Impression: COVID, Myalgia, Acute viral syndrome Instructions: Coronavirus Disease 2019 (COVID-19): Caring for Yourself or Others, COVID-19 and the Flu: What's the Difference?, ED Viral Syndrome (Adult) Prescriptions: No Action estradiol 2 mg tablet See Rx Instructions .ROUTE .COMPLEX Qty: 90 4RF Dose Instruction: take 1 tablet by mouth once daily Rx Instructions: take 1 tablet by mouth once daily alprazolam [Xanax] 0.25 mg tablet 0.25 mg PO DAILY PRN (Reason: anxiety) Qty: 10 1RF aripiprazole 5 mg tablet 7.5 mg PO DAILY Qty: 135 1RF sertraline 100 mg tablet See Rx Instructions .ROUTE .COMPLEX Qty: 180 3RF Dose Instruction: take 2 tablets by mouth once daily Rx Instructions: take 2 tablets by mouth once daily gabapentin 300 mg capsule 300 mg PO TID Qty: 90 1RF Rx Instructions: take 1 capsule by mouth three times a day dextroamphetamine-amphetamine [Adderall] 10 mg tablet 10 mg PO BID 30 Days Qty: 60 0RF Rx Instructions: administer doses at least 4-6 hours apart Stand Alone Forms: ED Work / School Excuse Primary Care Provider: Mariah Aranda Referrals: Mariah Aranda MD [Primary Care Provider] - 1 Week if not improving Activity Restrictions/Additional Instructions: You may return to work in 5 days if you are asymptomatic. Disposition Disposition: Home, Self Care
[2023-02-14] MEDS: Ketorolac 60 MG/2 ML Vial IM (19:26)
[2023-02-14 19:53] VITALS: BP 142/73; PULSE 97; RESP 18; TEMP 36.8; O2SAT 96
[2023-02-14 21:00] VITALS: BP 138/68; PULSE 66; RESP 14; TEMP 36.4; O2SAT 100
== END 2023-02-14 21:00 | disposition home or self-care (01) ==
PROVIDERS: Emergency Provider Emergency Medicine; PCP Internal Medicine; Visit Provider Emergency Medicine
DX: U07.1 COVID-19 (principal); B34.9 Viral infection, unspecified; M79.10 Myalgia, unspecified site; F17.210 Nicotine dependence, cigarettes, uncomplicated
CPT/HCPCS: 71045; 87428; 96372; 99284

== ENCOUNTER → 2023-05-18 | Outpatient (CLI) | payer OTHER, SELFPAY ==
--- NOTE | 2023-05-18 13:00 | BI_ITS ---
MAMMOGRAPHY - BILATERAL SCREENING REASON FOR EXAM: Female, 42 years old. Routine annual screening examination. PERTINENT HISTORY: Non-contributory. TECHNIQUE: Digital bilateral breast hannah (3D mammographic acquisition) in the CC and MLO projections. 2-D mediolateral oblique (MLO) and craniocaudad (CC) views of both breasts were obtained. CAD: Full Field Digital Mammography with Computer Added Detection was performed. COMPARISON: Comparison is made with prior study dated April 27, 2022 and December 01, 2020. FINDINGS: Breast Composition: There are scattered areas of fibroglandular density. There are no dominant masses or suspicious calcifications. Stable benign appearing bilateral axillary lymph nodes. No other significant abnormalities are identified. There has been no significant change since the prior study. BI/SCRN MAMM (CAD)W/HANNAH BILAT IMPRESSION: Stable bilateral screening mammogram. Yearly follow-up mammogram recommended. (A) ASSESSMENT CATEGORY: BIRADS Category 2: Benign. A letter regarding these results will be sent to the patient by the facility within 30 days. Approximately 10% of breast cancers are not detected by mammography. A normal mammogram should not delay biopsy of a clinically suspicious abnormality. [id number] Electronically Signed: Juancarlos Bravo MD at 14:03 EST ,
== END | disposition home or self-care (01) ==
LOC: OPBI 13:00
PROVIDERS: PCP Internal Medicine; Referring Provider Nurse Practitioner Women's Health; Visit Provider Nurse Practitioner Women's Health
DX: Z12.31 Encounter for screening mammogram for malignant neoplasm of breast (principal)
CPT/HCPCS: 77063; 77067

== ENCOUNTER → 2023-07-02 | Outpatient (CLI) | payer OTHER, SELFPAY ==
--- OUTSIDE RECORDS SUMMARY | 2023-07-02 09:08 | XMS RPT_ITS | CCD ---
Author Name Unknown Address [address] [place] [address] Organization [facility] Care Team Providers Care Telescope Maintenance Name Role Phone Wiley JAIMES, Bety Diaz Unavailable [phone] ANTHONY James RN, Verenice Trammell Unavailable Unavailabl e Seb Be Unavailable Unavailable Allergies Allergy Classification Reported Allergen(s) Allergy Type Date of Onset Reaction(s) Facility (3 sources) [facility] v drug [facility] Work Phone: Medications Completed/Discontinued Medications Medication Drug Class(es) Dates Sig (Normalized) Sig (Original) amphetamine aspartate 5 mg / amphetamine sulfate 5 mg / dextroamphetamine saccharate 5 mg / dextroamphetamine sulfate 5 mg oral tablet (1 source) Central Nervous System Stimulant Start: 02-16-2017 take 1 tablet by mouth once daily ADDERALL 20 MG TABS One tablet by mouth daily AMPHETAMINE-DEXTR OAMPHETAMINE [id number] Seb Be amphetamine aspartate 5 mg / amphetamine sulfate 5 mg / dextroamphetamine saccharate 5 mg / dextroamphetamine sulfate 5 mg oral tablet (2 sources) Central Nervous System Stimulant Start: 02-16-2017 take 1 tablet by mouth once daily ADDERALL 20 MG TABS One tablet by mouth daily AMPHETAMINE-DEXTR OAMPHETAMINE [id number] Seb Be Problems Active Problems Problem Classification Problem Date Documented Da te Episodic/Chronic Mood disorders (2 sources) Recurrent depression; Translations: [Major depressive disorder, recurrent, unspecified] Onset: 02-21-2017 02-21-2017 Chronic Other screening for suspected conditions (not mental disorders or infectious disease) (1 source) No current problems or disability 02-16-2017 Unclassified (2 sources) Screening mammography ; Translations: [Encounter for screening mammogram for malignant neoplasm of breast] Onset: 02-21-2017 02-21-2017 Past or Other Problems Problem Classification Problem Date Documented Da te Episodic/Chronic Menopausal disorders (2 sources) Hormone replacement therapy; Translations: [Hormone replacement therapy (postmenopausal)] Onset: 02-21-2017 02-21-2017 Episodic Results Test Name Value Interpretation Reference Range Facil ity Vital Signs Date Time Vital Sign Value Performing Clinician Facility 02-21-2017 08:01-0400 BMI (Body Mass Index) 32.96 kg/m2 Bety Jama NP [facility] 02-21-2017 08:01-0400 Body Temperature 97.5 [degF] Bety Jama NP [facility] 02-21-2017 08:01-0400 BP Diastolic 82 mm[Hg] Bety Jama NP [facility] 02-21-2017 08:01-0400 BP Systolic 133 mm[Hg] Bety Jama NP [facility] 02-21-2017 08:01-0400 Height 167.64 cm Bety Jama NP [facility] 02-21-2017 08:01-0400 Pulse (Heart Rate) 84 /min Bety Jama NP [facility] 02-21-2017 08:01-0400 Respiratory Rate 16 /min Bety Jama NP [facility] 02-21-2017 08:01-0400 Weight 92.63 kg Bety Jama NP [facility] 02-21-2017 08:01-0400 Weight 92.62 kg Bety Jama NP [facility] Plan of Treatment Date Care Activity Detail Author Start: 02-21-2017 End: 02-21-2017 Mammogram, screening Mammogram, Screening, both breasts [facility] Work Phone: Start: 02-21-2017 End: 02-21-2017 Appointment [facility]ment [place] [facility] Work Phone: Start: 02-21-2017 End: 02-21-2017 Mammogram, screening Mammogram, Screening, both breasts [facility] Clinical Note 01-07-2021 Note Date & Type Note Facility 01-07-2021 Note Patient Outreach ([facility]) SUNSHINE BENNETT ([id number]) 1980 F Date Time Provider Department 01/07/21 NELLY SALGADO During your visit today, we recorded the following information about you: Allergies As of Date: 01/07/2021 Noted Allergy Reaction AMOXICILLIN 09/08/2005 4 - Hives Environmental [Other] 09/21/2011 16 - Unknown Comments: Lucio tree pollen PENICILLINS 09/08/2005 4 - Hives Date Reviewed: 10/15/2018 Reviewed by: Talita Alvarez LPN - Fully Assessed Visit Diagnosis:Encounter for screening mammogram for breast cancer [Z12.31] Order(s):[facility] SCREENING [[id number]] Order #: [id number] FUTURE Prescriptions as of 01/10/2021 - sertraline (ZOLOFT) 50 mg tablet - gabapentin (NEURONTIN) 100 mg capsule Take 1 capsule by mouth every morning for 180 days. - dextroamphetamine-amphetamine (ADDERALL) 10 mg tablet Take 1.5 tablets by mouth once daily for 30 days. As directed Earliest Fill Date: 10/16/18 - dextroamphetamine-amphetamine (ADDERALL) 10 mg tablet Take 1.5 tablets by mouth once daily for 30 days. As directed Earliest Fill Date: 11/15/18 - atenolol (TENORMIN) 25 mg tablet Take 1 tablet by mouth once daily. - gabapentin (NEURONTIN) 300 mg capsule Take 1 to 3 pills during the day as directed plus 3 pills at bedtime - ALPRAZolam (XANAX) 1 mg tablet Take 1/2 to 1 tablet by mouth twice daily as needed for anxiety or panic attack. - estradiol (ESTRACE) 1 mg tablet Take 2 tablets by mouth once daily. - gabapentin (NEURONTIN) 300 mg capsule Take 3 capsules by mouth daily at bedtime for 180 days. (will need RX in October) Problem List As Of Date 01/07/2021 Noted Resolved IRRITABLE COLON [K58.9] Class 2 obesity due to excess calories without *11/25/2007 Lumbago [M54.5] 01/31/2010 08/09/2016 Pruritus [L29.9] 05/02/2010 08/09/2016 Endometriosis [N80.9] 08/09/2016 02/17/2017 Depression with anxiety [F41.8] 08/09/2016 Adult ADHD [F90.9] 08/09/2016 Pelvic adhesions [N73.6] 09/08/2016 Nausea [R11.0] 05/01/2017 Altered bowel function [R19.8] 05/01/2017 Left sided abdominal pain [R10.9] 05/01/2017 Surgical menopause on hormone replacement thera*08/05/2017 Chest pain, musculoskeletal [R07.89] 03/10/2018 Encounter Status:Closed by JEANNA PRODUSER on 01/10/21 [facility] Summary Purpose Family History No Family History Records Found Advance Directives No Advanced Directives Records Found Additional Source Comments INFORMATION SOURCE (unrecogn ized section and content) FOR RECORDS PERTAINING TO PATIENTS WHO ARE OR HAVE BEEN ENROLLED IN A CHEMICAL DEPENDENCY/SUBSTANCEABUSE PROGRAM, SOME INFORMATION MAY BE OMITTED. This clinical summary was aggregated from multiple sources. Caution should be exercised in using it in the provision of clinical care. This summary normalizes information from multiple sources, and as a consequence, information in this document may materially change the coding, format and clinical context of patient data. In addition, data may be omitted in some cases. CLINICAL DECISIONS SHOULD BE BASED ON THE PRIMARY CLINICAL RECORDS. [facility]. provides no warranty or guarantee of the accuracy or completeness of information in this document.
[2023-07-02 14:38] LABS: Amphetamine Urine VISTA POSITIVE (<1000 ng/mL); Barbiturate Urine VISTA NEGATIVE (< 200 ng/mL); Benzodiazepine Urine VISTA NEGATIVE (< 200 ng/mL); Cocaine Urine VISTA NEGATIVE (< 300 ng/mL); Ecstacy Urine VISTA NEGATIVE (< 500 ng/mL); Methadone Urine VISTA NEGATIVE (< 300 ng/mL); PCP Urine VISTA NEGATIVE (< 25 ng/mL); THC Urine VISTA NEGATIVE (< 50 ng/mL); Vista UDS pH Range 4
== END | disposition home or self-care (01) ==
LOC: LABSPEC 08:38
PROVIDERS: PCP Internal Medicine; Referring Provider Internal Medicine; Visit Provider Internal Medicine
DX: F98.8 Other specified behavioral and emotional disorders with onset usually occurring in childhood and adolescence (principal)
CPT/HCPCS: 80307

== ENCOUNTER → 2024-02-08 | Outpatient (CLI) | payer OTHER, SELFPAY ==
[2024-02-08 12:17] LABS: Absolute Lymphocyte Count 3.34 X10^3/uL (0.83-4.51); Absolute Neutrophil Count 4.4 X10^3/uL (2.0-7.7); Basophil# 0.06 X10^3/uL; Basophil% 0.7 % (0-1); Eosinophil# 0.15 X10^3/uL; Eosinophils% 1.8 % (0-5); Hematocrit 41.7 % (37-47); Lymphocyte # 3.34 X10^3/ul (0.83-4.51); Lymphocyte % 40.1 % (19-41); Mean Corp Hgb Conc 33.6 g/dL (32-36); Mean Corpuscular Volume 89.5 fL (81-99); Mean Platelet Vol. 9.8 fl (6.2-12.0); Monocyte% 4.8 % (0-10); NRBC Flagged by Analyzer 0 % (0-5); Neutrophil # 4.36 X10^3/uL (2.7-7.7); Neutrophil % 52.5 % (47-70); Platelet Count 374 K/mm3 (150-450); RBC Distribution Width CV 13.9 % (11.6-14.6); RBC Distribution Width SD 45.7 fl (35.1-43.9); Red Blood Count 4.66 M/mm3 (4.2-5.4); White Blood Count 8.3 K/mm3 (4.4-11.0)
[2024-02-08 13:03] LABS: ALB/GLOB Ratio 0.9 RATIO (0.9-2.4); AST(SGOT) 16 U/L (15-37); Alanine Aminotransfer ALT/SGPT 25 U/L (13-56); Albumin, Serum 3.7 g/dL (3.2-5.0); Alkaline Phosphatase 72 U/L (45-117); Anion Gap 7 (5-15); BUN 12 mg/dL (7-18); BUN/Creat Ratio 15.1 RATIO (10-20); Calcium,Total 9.4 mg/dL (8.5-10.1); Chloride 105 mmol/L (98-107); Cholesterol 235 mg/dL (200); EST Glomerular Filtration Rate 83 mL/min (>60); Est Glom Filt Rate - Afr Amer 101 mL/min (>60); Glucose 101 mg/dL (74-106); High Density Lipoprotein 53 mg/dL; Potassium 3.7 mmol/L (3.5-5.1); Protein, Total 7.7 g/dL (6.4-8.2); Sodium Level 138 mmol/L (136-145); Triglycerides 195 mg/dL; Very Low Density Lipoprotein 39 mg/dL (5-40)
== END | disposition home or self-care (01) ==
LOC: BIMLAB 10:52
PROVIDERS: PCP Internal Medicine; Referring Provider Internal Medicine; Visit Provider Internal Medicine
DX: E78.5 Hyperlipidemia, unspecified (principal); I10 Essential (primary) hypertension
CPT/HCPCS: 36415; 80053; 80061; 85025

== ENCOUNTER → 2024-06-30 | Outpatient (CLI) | payer BC, SELFPAY ==
--- NOTE | 2024-06-30 09:25 | US_ITS ---
STUDY: ULTRASOUND BREAST - RIGHT REASON FOR EXAM: Female, 43 years old. Right retroareolar tenderness. TECHNIQUE: Axial and longitudinal images of the RIGHT breast were performed with a high resolution ultrasound transducer. # OF IMAGES: 60 COMPARISON: Comparison is made with prior mammogram done earlier in the day. FINDINGS: RIGHT Breast: The retroareolar region of the breast was examined with ultrasound. No sonographic abnormality is seen. IMPRESSION: No sonographic abnormality is seen. ASSESSMENT CATEGORY: BIRADS Category 1: Negative. A letter regarding these results will be sent to the patient by the facility within 30 days. Electronically Signed: Juancarlos Bravo MD at 14:54 EST , STUDY: ULTRASOUND BREAST - LEFT REASON FOR EXAM: Female, 43 years old. Left axillary tenderness. TECHNIQUE: Axial and longitudinal images of the LEFT breast were performed with a high resolution ultrasound transducer. # OF IMAGES: 60 COMPARISON: Comparison is made with prior mammogram done earlier in the day. FINDINGS: LEFT Breast: The axillary region of the left breast was examined with ultrasound. No sonographic abnormality is seen. US/Breast Limited Unilateral IMPRESSION: No sonographic abnormality is seen. ASSESSMENT CATEGORY: BIRADS Category 1: Negative. A letter regarding these results will be sent to the patient by the facility within 30 days. Electronically Signed: Juancarlos Bravo MD at 14:56 EST ,
--- NOTE | 2024-06-30 09:25 | BI_ITS ---
MAMMOGRAPHY - BILATERAL DIAGNOSTIC REASON FOR EXAM: Female, 43 years old. PERTINENT HISTORY: Bilateral breast pain. More prominent in the left axillary region and right periareolar region. TECHNIQUE: Digital bilateral breast vicente (3D mammographic acquisition) in the CC and MLO projections. 2-D mediolateral oblique (MLO) and craniocaudad (CC) views of both breasts were obtained. CAD: Full Field Digital Mammography with Computer Added Detection was performed. COMPARISON: Comparison is made with prior study dated May 18, 2023 and April 27, 2022. FINDINGS: Breast Composition: There are scattered areas of fibroglandular density. There are no dominant masses or suspicious calcifications. No other significant abnormalities are identified. There has been no significant change since the prior study. BI/DIAG MAMM W/CAD, BILAT IMPRESSION: Stable bilateral diagnostic mammogram. With the patient''s history of bilateral breast pain, correlation with ultrasound is recommended. ASSESSMENT CATEGORY: BIRADS Category 0: Incomplete. Need additional imaging evaluation. A letter regarding these results will be sent to the patient by the facility within 30 days. Approximately 10% of breast cancers are not detected by mammography. A normal mammogram should not delay biopsy of a clinically suspicious abnormality. Electronically Signed: Juancarlos Bravo MD at 11:01 EST ,
== END | disposition home or self-care (01) ==
PROVIDERS: PCP Internal Medicine; Referring Provider Internal Medicine; Visit Provider Internal Medicine
DX: N64.4 Mastodynia (principal)
CPT/HCPCS: 76642; 77062; 77066; G0279

== ENCOUNTER → 2024-11-13 | Outpatient (CLI) | payer BC, SELFPAY ==
[2024-11-13 11:44] LABS: Bacteria 0 SEEN /hpf (None Seen); Mucous, Urine 0 SEEN /hpf (<or=2+); Red Blood Cells-Urine 0 SEEN /hpf (0-5); Squamous Epithelial Cells - UA 0 SEEN /hpf (5-10); White Blood Cells 0 SEEN /hpf (0-5)
[2024-11-13 15:29] LABS: Color, Urine Yellow (Yellow); Glucose, Dipstick Normal (Normal); Ketone-Dipstick Negative (Negative); Leukocyte Esterase-Dipstick Negative /ul (Negative); Nitrite-Dipstick Negative (Negative); Occult Blood-Urine Negative /ul (Negative); Protein-Dipstick Negative (Negative); Specific Gravity, Urine 1.005 (1.002-1.030); Urine Bilirubin Dipstick Negative (Negative); Urine Clarity Clear (Clear); Urine Urobilinogen Normal (Normal)
== END | disposition home or self-care (01) ==
LOC: LABSPEC 11:43
PROVIDERS: PCP Internal Medicine; Referring Provider Internal Medicine; Visit Provider Internal Medicine
DX: R35.0 Frequency of micturition (principal)
CPT/HCPCS: 81001; 87086

== ENCOUNTER → 2025-05-26 | Outpatient (CLI) | payer BC, SELFPAY ==
--- OUTSIDE RECORDS SUMMARY | 2025-05-26 08:09 | XMS RPT_ITS | CCD ---
Author Organization [facility] Care Team Providers Care Glass Glazier Name Role Phone Wiley JAIMES, Bety S Unavailable [phone] ANTHONY James RN, Verenice Trammell Unavailable Unavailabl Seb Marte Unavailable Unavailable Dr. Mariah Aranda Primary Care Provider 1(33 [phone]) Dr. Mariah Aranda Attending Provider [phone] Dr. Mariah Aranda Referring Provider [phone] Lynnette [employer]BER, [employer] MEMBER-C Diogo Attending Provider [phone]) Dr. Mariah Aranda Primary Care Provider 1(33 0) Dr. Mariah Aranda Attending Provider [phone])2 Dr. Mariah Aranda Referring Provider [phone] Wiley [employer] MEMBER, AB[employer]AL [employer]NCIL MEMBER-C Bety Attending Provider [phone] ) KAROLINE Monteiro Attending Provider Dr. Mariah Sorensen Primary Care Provider 1(33 0) Dr. Mariah Aranda Referring Provider [phone])2 Dr. Mariah Aranda Primary Care Provider 1(33 0) Dr. Mariah Aranda Referring Provider [phone])2 KAROLINE Monteiro Attending Provider Dr. Mariah Sorensen Attending Provider [phone])2 Dr. Mariah Aranda Primary Care Provider 1(33 0) Dr. Joann Arandabe Referring Provider [phone])2 Manoj, Dr. Lemus Primary Care Provider 1(33 0) Manoj, Dr. Lemus Attending Provider [phone])2 Manoj, Dr. Lemus Referring Provider [phone])2 Manoj, Dr. Lemus Primary Care Provider 1(33 0) Manoj, Dr. Lemus Attending Provider [phone])2 Manoj, Dr. Lemus Referring Provider [phone])2 Manoj PUENTE, Dr. Lemus Primary Care Provider Manoj PUENTE, Dr. Lemus Attending Provider 1(33 0) Manoj PUENTE, Dr. Lemus Referring Provider 1(33 0) Shawanda Liang Attending Provider Manoj PUENTE, Dr. Lemus Primary Care Provider Manoj PUENTE, Dr. Lemus Attending Provider 1(33 0) Manoj PUENTE, Dr. Lemus Referring Provider 1(33 0) Oleghe, Efewongbe Referring Unavailable Oleghe, Efewongbe Primary Care Unavailable Oleghe, Efewongbe Attending Unavailable Oleghe, Efewongbe Attending Unavailable Oleghe, Efewongbe Referring Unavailable Oleghe, Efewongbe Primary Care Unavailable Oleghe, Efewongbe Attending Unavailable Oleghe, Efewongbe Referring Unavailable Oleghe, Efewongbe Primary Care Unavailable Oleghe, Efewongbe Attending Unavailable Oleghe, Efewongbe Referring Unavailable Oleghe, Efewongbe Primary Care Unavailable Oleghe, Efewongbe Referring Unavailable Oleghe, Efewongbe Primary Care Unavailable Oleghe, Efewongbe Attending Unavailable Oleghe, Efewongbe Attending Unavailable Oleghe, Efewongbe Referring Unavailable Oleghe, Efewongbe Primary Care Unavailable Oleghe, Efewongbe Referring Unavailable Shawanda Corbett Attending Unavailable Oleghe, Efewongbe Primary Care Unavailable Allergies Allergy Classification Reported Allergen(s) Allergy Type Date of Onset Reaction(s) Facility (3 sources) penicillin v drug allergy 7 [facility] Work Phone: (14 sources) Amoxicillin Drug Allergy 2 Other [facility] (15 sources) Penicillins; Translations: [Penicillins] Allergy to substance 2 Hives [facility] (1 source) Amoxicillin Drug Allergy 5 [facility] Repository Medications Current Medications Medication Drug Class(es) Dates Sig (Normalized) Sig (Original) [id number] 200 actuat albuterol 0.09 mg/actuat metered dose inhaler (2 sources) beta2-Adrenergic Agonist Start: 01-17-2025 Albuterol Sulfate (Ventolin Hfa) 90 mcg/actuation HFA aerosol inhaler Active 2 NMA INHALATION EVERY 4-6 HOURS as needed for shortness of breath or wheezing 6.7 0 January 17, 2025 12:00am ALPRAZolam 0.25 mg oral tablet (20 sources) Benzodiazepine Start: 09-17-2020 End: 03-15-2022 take 1 tablet by mouth once daily as needed for anxiety Alprazolam (Xanax) 0.25 mg tablet Active 0.25 mg PO DAILY as needed for anxiety 10 March 15, 2022 2:11pm Start: 11-15-2018 End: 04-22-2020 take 1 tablet by mouth at bedtime as needed Alprazolam (Xanax) 1 mg tablet Discontinued 1 mg PO AT BEDTIME as needed November 15, 2018 12:00am April 22, 2020 11:35am amphetamine aspartate 2.5 mg / amphetamine sulfate 2.5 mg / dextroamphetamine saccharate 2.5 mg / dextroamphetamine sulfate 2.5 mg oral tablet (20 sources) Central Nervous System Stimulant Start: 01-08-2025 End: 01-12-2025 Dextroamphetamine-Amphetamin e 10 mg tablet Active 1 {tbl} PO TWICE A DAY 60 30 0 January 12, 2025 February 10, 2025 12:00am Attention deficit disorder Attention-deficit hyperactivity disorder, predominantly inattentive type Start: 11-26-2024 End: 12-26-2024 Dextroamphetamine-Amphetamin e 10 mg tablet Discontinued 1 {tbl} PO TWICE A DAY 60 30 0 November 26, 2024 December 25, 2024 12:00am December 26, 2024 12:07am Attention deficit disorder Attention-deficit hyperactivity disorder, predominantly inattentive type Start: 10-13-2024 End: 11-12-2024 Dextroamphetamine-Amphetamin e 10 mg tablet Discontinued 1 {tbl} PO TWICE A DAY 60 30 0 October 13, 2024 November 11, 2024 12:00am November 12, 2024 12:06am Attention deficit disorder Attention-deficit hyperactivity disorder, predominantly inattentive type Start: 09-09-2024 End: 10-09-2024 Dextroamphetamine-Amphetamin e 10 mg tablet Discontinued 1 {tbl} PO TWICE A DAY 60 30 0 September 09, 2024 October 08, 2024 12:00am October 09, 2024 12:07am Attention deficit disorder Attention-deficit hyperactivity disorder, predominantly inattentive type Start: 07-31-2024 End: 08-30-2024 Dextroamphetamine-Amphetamin e 10 mg tablet Discontinued 1 {tbl} PO TWICE A DAY 60 30 0 July 31, 2024 August 29, 2024 12:00am August 30, 2024 12:25am Attention deficit disorder Attention-deficit hyperactivity disorder, predominantly inattentive type Start: 06-26-2024 End: 07-26-2024 Dextroamphetamine-Amphetamin e 10 mg tablet Discontinued 1 {tbl} PO TWICE A DAY 60 30 0 June 26, 2024 July 25, 2024 1:00am July 26, 2024 1:21am Attention deficit disorder Attention-deficit hyperactivity disorder, predominantly inattentive type Start: 05-13-2024 End: 06-12-2024 take 1 tablet by mouth every four to six hours Dextroamphetamine-Amphetamine (Adderall) 10 mg tablet Discontinued 10 mg PO TWICE A DAY 60 30 0 May 13, 2024 June 11, 2024 1:00am June 12, 2024 1:08am Attention deficit disorder administer doses at least 4-6 hours apart Start: 04-08-2024 End: 05-08-2024 take 1 tablet by mouth every four to six hours Dextroamphetamine-Amphetamine (Adderall) 10 mg tablet Discontinued 10 mg PO TWICE A DAY 60 30 0 April 08, 2024 May 07, 2024 1:00am May 08, 2024 1:09am Attention deficit disorder administer doses at least 4-6 hours apart Start: 02-29-2024 End: 03-30-2024 take 1 tablet by mouth every four to six hours Dextroamphetamine-Amphetamine (Adderall) 10 mg tablet Discontinued 10 mg PO TWICE A DAY 60 30 0 February 29, 2024 March 29, 2024 12:00am March 30, 2024 12:08am Attention deficit disorder administer doses at least 4-6 hours apart Start: 01-22-2024 End: 02-21-2024 take 1 tablet by mouth every four to six hours Dextroamphetamine-Amphetamine (Adderall) 10 mg tablet Discontinued 10 mg PO TWICE A DAY 60 30 0 January 22, 2024 February 20, 2024 12:00am February 21, 2024 12:03am Attention deficit disorder administer doses at least 4-6 hours apart Start: 12-13-2023 End: 01-16-2024 take 1 tablet by mouth every four to six hours Dextroamphetamine-Amphetamine (Adderall) 10 mg tablet Discontinued 10 mg PO TWICE A DAY 60 30 0 December 17, 2023 January 15, 2024 12:00am January 16, 2024 12:03am Attention deficit disorder administer doses at least 4-6 hours apart Start: 12-10-2023 End: 12-13-2023 Dextroamphetamine-Amphetamin e 10 mg tablet Discontinued 1 {tbl} PO TWICE A DAY 60 30 0 December 10, 2023 January 08, 2024 12:00am December 13, 2023 6:03pm Attention deficit disorder Attention-deficit hyperactivity disorder, predominantly inattentive type On Hold: None Start: 10-25-2023 End: 11-29-2023 Dextroamphetamine-Amphetamin e 10 mg tablet Discontinued 1 {tbl} PO TWICE A DAY 60 30 0 October 30, 2023 November 28, 2023 12:00am November 29, 2023 12:06am Attention deficit disorder Attention-deficit hyperactivity disorder, predominantly inattentive type Start: 09-18-2023 End: 10-18-2023 take 1 tablet by mouth every four to six hours Dextroamphetamine-Amphetamine (Adderall) 10 mg tablet Discontinued 10 mg PO TWICE A DAY 60 30 0 September 18, 2023 October 17, 2023 12:00am October 18, 2023 12:06am Attention deficit disorder administer doses at least 4-6 hours apart Start: 08-14-2023 End: 09-13-2023 take 1 tablet by mouth every four to six hours Dextroamphetamine-Amphetamine (Adderall) 10 mg tablet Discontinued 10 mg PO TWICE A DAY 60 30 0 August 14, 2023 September 12, 2023 12:00am September 13, 2023 12:05am Attention deficit disorder administer doses at least 4-6 hours apart Start: 07-02-2023 End: 08-01-2023 take 1 tablet by mouth every four to six hours Dextroamphetamine-Amphetamine (Adderall) 10 mg tablet Discontinued 10 mg PO TWICE A DAY 60 30 0 July 02, 2023 July 31, 2023 1:00am August 01, 2023 1:04am Attention deficit disorder administer doses at least 4-6 hours apart Start: 07-02-2023 End: 07-02-2023 Dextroamphetamine-Amphetamin e 10 mg tablet Discontinued PO 0 July 02, 2023 1:00am July 02, 2023 9:36am Start: 05-29-2023 End: 06-28-2023 take 1 tablet by mouth every four to six hours Dextroamphetamine-Amphetamine (Adderall) 10 mg tablet Discontinued 10 mg PO TWICE A DAY 60 30 0 May 29, 2023 June 27, 2023 1:00am June 28, 2023 1:04am Attention deficit disorder administer doses at least 4-6 hours apart Start: 04-17-2023 End: 05-17-2023 take 1 tablet by mouth every four to six hours Dextroamphetamine-Amphetamine (Adderall) 10 mg tablet Discontinued 10 mg PO TWICE A DAY 60 30 0 April 17, 2023 May 16, 2023 1:00am May 17, 2023 1:04am Attention deficit disorder administer doses at least 4-6 hours apart Start: 03-12-2023 End: 04-11-2023 take 1 tablet by mouth every four to six hours Dextroamphetamine-Amphetamine (Adderall) 10 mg tablet Discontinued 10 mg PO TWICE A DAY 60 30 0 March 12, 2023 April 10, 2023 12:00am April 11, 2023 12:10am Attention deficit disorder administer doses at least 4-6 hours apart Start: 01-29-2023 End: 02-28-2023 take 1 tablet by mouth every four to six hours Dextroamphetamine-Amphetamine (Adderall) 10 mg tablet Discontinued 10 mg PO TWICE A DAY 60 30 0 January 29, 2023 February 27, 2023 12:00am February 28, 2023 12:04am Attention deficit disorder administer doses at least 4-6 hours apart Start: 12-21-2022 End: 01-20-2023 take 1 tablet by mouth every four to six hours Dextroamphetamine-Amphetamine (Adderall) 10 mg tablet Discontinued 10 mg PO TWICE A DAY 60 30 0 December 21, 2022 January 19, 2023 12:00am January 20, 2023 12:10am Attention deficit disorder administer doses at least 4-6 hours apart Start: 11-06-2022 End: 12-06-2022 take 1 tablet by mouth every four to six hours Dextroamphetamine-Amphetamine (Adderall) 10 mg tablet Discontinued 10 mg PO TWICE A DAY 60 30 0 November 06, 2022 December 05, 2022 12:00am December 06, 2022 12:06am Attention deficit disorder administer doses at least 4-6 hours apart Start: 10-04-2022 End: 11-03-2022 take 1 tablet by mouth every four to six hours Dextroamphetamine-Amphetamine (Adderall) 10 mg tablet Discontinued 10 mg PO TWICE A DAY 60 30 0 October 04, 2022 November 02, 2022 12:00am November 03, 2022 12:04am Attention deficit disorder administer doses at least 4-6 hours apart Start: 08-25-2022 End: 09-24-2022 take 1 tablet by mouth every four to six hours Dextroamphetamine-Amphetamine (Adderall) 10 mg tablet Discontinued 10 mg PO TWICE A DAY 60 30 0 August 25, 2022 September 23, 2022 12:00am September 24, 2022 12:04am Attention deficit disorder administer doses at least 4-6 hours apart Start: 07-18-2022 End: 08-17-2022 take 1 tablet by mouth every four to six hours Dextroamphetamine-Amphetamine (Adderall) 10 mg tablet Discontinued 10 mg PO TWICE A DAY 60 30 0 July 18, 2022 August 16, 2022 1:00am August 17, 2022 1:04am Attention deficit disorder administer doses at least 4-6 hours apart Start: 06-13-2022 End: 07-13-2022 take 1 tablet by mouth every four to six hours Dextroamphetamine-Amphetamine (Adderall) 10 mg tablet Discontinued 10 mg PO TWICE A DAY 60 30 0 June 13, 2022 July 12, 2022 1:00am July 13, 2022 1:03am Attention deficit disorder administer doses at least 4-6 hours apart Start: 04-26-2022 End: 05-26-2022 take 1 tablet by mouth every four to six hours Dextroamphetamine-Amphetamine (Adderall) 10 mg tablet Discontinued 10 mg PO TWICE A DAY 60 30 0 April 26, 2022 May 25, 2022 1:00am May 26, 2022 1:03am Attention deficit disorder administer doses at least 4-6 hours apart Start: 03-22-2022 End: 04-21-2022 take 1 tablet by mouth every four to six hours Dextroamphetamine-Amphetamine (Adderall) 10 mg tablet Discontinued 10 mg PO TWICE A DAY 60 30 0 March 22, 2022 April 20, 2022 12:00am April 21, 2022 12:04am Attention deficit disorder administer doses at least 4-6 hours apart Start: 02-01-2022 End: 03-08-2022 take 1 tablet by mouth every four to six hours Dextroamphetamine-Amphetamine (Adderall) 10 mg tablet Discontinued 10 mg PO TWICE A DAY 60 30 0 February 06, 2022 March 07, 2022 12:00am March 08, 2022 12:03am Attention deficit disorder administer doses at least 4-6 hours apart Start: 12-23-2021 End: 01-22-2022 take 1 tablet by mouth twice daily Dextroamphetamine-Amphetamine 10 mg tabl et Discontinued 10 mg PO TWICE A DAY 60 30 0 December 23, 2021 January 21, 2022 12:00am January 22, 2022 12:04am Attention-deficit hyperactivity disorder, unspecified type Start: 11-09-2021 End: 12-09-2021 take 1 tablet by mouth twice daily Dextroamphetamine-Amphetamine 10 mg tabl et Discontinued 10 mg PO TWICE A DAY 60 30 0 November 09, 2021 December 08, 2021 12:00am December 09, 2021 12:03am Attention-deficit hyperactivity disorder, unspecified type Start: 10-04-2021 End: 11-03-2021 take 1 tablet by mouth twice daily Dextroamphetamine-Amphetamine 10 mg tabl et Discontinued 10 mg PO TWICE A DAY 60 30 0 October 04, 2021 November 02, 2021 12:00am November 03, 2021 12:06am Attention-deficit hyperactivity disorder, unspecified type Start: 08-26-2021 End: 09-25-2021 take 1 tablet by mouth twice daily Dextroamphetamine-Amphetamine 10 mg tabl et Discontinued 10 mg PO TWICE A DAY 60 30 0 August 26, 2021 September 24, 2021 12:00am September 25, 2021 12:04am Attention-deficit hyperactivity disorder, unspecified type Start: 07-15-2021 End: 08-14-2021 take 1 tablet by mouth twice daily Dextroamphetamine-Amphetamine 10 mg tabl et Discontinued 10 mg PO TWICE A DAY 60 30 0 July 15, 2021 August 13, 2021 1:00am August 14, 2021 1:03am Attention-deficit hyperactivity disorder, unspecified type Start: 06-06-2021 End: 07-06-2021 take 1 tablet by mouth twice daily Dextroamphetamine-Amphetamine 10 mg tabl et Discontinued 10 mg PO TWICE A DAY 60 30 0 June 06, 2021 July 05, 2021 1:00am July 06, 2021 1:01am Attention-deficit hyperactivity disorder, unspecified type Start: 04-28-2021 End: 05-28-2021 take 1 tablet by mouth twice daily Dextroamphetamine-Amphetamine 10 mg tabl et Discontinued 10 mg PO TWICE A DAY 60 30 0 April 28, 2021 May 27, 2021 1:00am May 28, 2021 1:01am Attention-deficit hyperactivity disorder, unspecified type Start: 12-22-2020 End: 04-17-2021 take 1 tablet by mouth twice daily Dextroamphetamine-Amphetamine 10 mg tabl et Discontinued 10 mg PO TWICE A DAY 60 30 0 March 18, 2021 April 16, 2021 12:00am April 17, 2021 12:01am Attention-deficit hyperactivity disorder, unspecified type Start: 09-05-2019 End: 12-09-2020 take 1 tablet by mouth twice daily Dextroamphetamine-Amphetamine 10 mg tabl et Discontinued 10 mg PO TWICE A DAY 60 30 0 November 09, 2020 December 08, 2020 12:00am December 09, 2020 12:01am Attention-deficit hyperactivity disorder, unspecified type Start: 05-14-2019 End: 09-05-2019 take 5 mg by mouth twice daily Dextroamphetamine-Amphetamine 10 mg tabl et Discontinued 5 mg PO TWICE A DAY 30 0 August 01, 2019 September 05, 2019 11:36am Attention-deficit hyperactivity disorder, unspecified type Start: 05-14-2019 End: 09-05-2019 take 5 mg by mouth twice daily Dextroamphetamine-Amphetamine Discontinu ed 5 MG PO TWICE A DAY 30 August 01, 2019 September 05, 2019 10:36am Start: 01-28-2019 End: 05-14-2019 take 1 tablet by mouth once daily Dextroamphetamine-Amphetamine 10 mg tabl et Discontinued 10 mg PO DAILY 30 0 April 08, 2019 May 14, 2019 7:32pm Attention-deficit hyperactivity disorder, unspecified type Start: 09-25-2016 End: 01-28-2019 take 1 tablet by mouth once daily Dextroamphetamine-Amphetamine 20 MG tabl et Discontinued 20 mg PO DAILY September 25, 2016 12:00am January 28, 2019 4:41pm estradiol 1 mg oral tablet (20 sources) Estrogen Start: 09-07-2024 take 1 tablet by mouth once daily Estradiol 1 mg tablet Active 1 mg PO DAILY 90 1 September 07, 2024 12:00am Start: 01-01-2020 End: 08-19-2020 Estradiol (Estrace) 0.01 % ( 0.1 mg/gram) cream Discontinued 0 VAGINAL .COMPLEX 42.5 2 January 01, 2020 12:00am August 19, 2020 7:09pm pea sized amount VAGINAL every other day X 4 weeks then twice a week; Start: 01-01-2020 End: 08-19-2020 Estradiol (Estrace) 0.01 % ( 0.1 mg/gram) cream Discontinued 0 VAGINAL .COMPLEX 42.5 December 31, 2019 11:00pm August 19, 2020 6:09pm pea sized amount VAGINAL every other day X 4 weeks then twice a week; Start: 10-31-2017 End: 09-07-2024 take 1 tablet by mouth once daily Estradiol 2 mg table t Discontinued 0 .ROUTE .COMPLEX 90 1 April 04, 2023 2:22pm 2023 9:25am take 1 tablet by mouth once daily Start: 10-03-2017 End: 10-31-2017 Estradiol (Estrace) 1 mg tab let Discontinued mg PO 0 October 03, 2017 12:00am October 31, 2017 3:38pm Start: 07-30-2017 End: 10-03-2017 take 1.5 tablets by mouth once daily Estradiol (Estrace) 1 mg tablet Discontinued 0 PO daily 90 6 July 30, 2017 1:00am October 03, 2017 4:09pm 1.5 tab PO QDAY Start: 02-16-2017 take 1 tablet by mouth once da liliane ESTRADIOL 1 MG TABS One tablet by mouth daily ESTRADIOL [id number] Bety Jama NP Start: 02-16-2017 take 1 tablet by mouth once da liliane ESTRADIOL 0.5 MG TABS One tablet by mouth daily ESTRADIOL [id number] Seb Be Start: 10-05-2016 End: 07-30-2017 apply 0.1 mg transdermal route once Estradiol 0.1 MG patch Discontinued 0.1 mg TRANSDERM. .2X/WEEK 8 October 05, 2016 12:00am July 30, 2017 12:44pm gabapentin 300 mg oral capsule (20 sources) Anti-epileptic Agent Start: 05-14-2019 End: 02-03-2025 take 1 capsule by mouth three times daily Gabapentin 300 mg capsule Active 300 mg PO THREE TIMES A DAY 90 0 February 03, 2025 4:23pm take 1 capsule by mouth three times a day Start: 04-08-2019 End: 05-14-2019 take 1 capsule by mouth twice daily Gabapentin 300 mg capsule Discontinued 300 mg PO TWICE A DAY 90 2 April 08, 2019 9:59am May 14, 2019 5:14pm Start: 11-15-2018 End: 04-08-2019 take 1 capsule by mouth once daily Gabapentin 300 mg capsule Discontinued 300 mg PO DAILY November 15, 2018 12:00am April 08, 2019 10:01am Start: 02-16-2017 take 3 tablets by [facility] once daily as needed GRALISE 300 MG TABS Three tablets by mouth daily as needed GABAPENTIN (ONCE-DAILY) [id number] Seb Be Start: 02-16-2017 take 3 tablets by [facility] once daily as needed GRALISE 300 MG TABS Three tablets by mouth daily as needed GABAPENTIN (ONCE-DAILY) [id number] Seb Be Start: 05-05-2013 End: 10-17-2018 take 2 capsules by mouth four times daily Gabapentin 100 MG capsule Discontinued 200 mg PO 4 TIMES DAILY May 05, 2013 1:00am October 17, 2018 8:05am Start: 05-05-2013 End: 10-17-2018 take 200 mg by mouth four times daily Gabapentin Discontinued 200 MG PO 4 TIMES DAILY May 05, 2013 12:00am October 17, 2018 7:05am 24 hr oxybutynin chloride 5 mg extended release oral tablet (5 sources) Cholinergic Muscarinic Antagonist Start: 11-13-2024 End: 01-12-2025 take 1 tablet by mouth once daily Oxybutynin Chloride 5 mg tablet extended release 24hr Active 5 mg PO daily 90 January 12, 2025 8:41am topiramate 25 mg oral tablet (1 source) Start: 02-09-2025 Topiramate (Topamax) 25 mg tablet Active 25 mg PO TWICE A DAY 60 February 09, 2025 12:00am Take QHS x 2 weeks then increase to BID Completed/Discontinued Medications Medication Drug Class(es) Dates Sig (Normalized) Sig (Original) acetaminophen 325 mg / HYDROcodone bitartrate 5 mg oral tablet (14 sources) Opioid Agonist Start: 10-18-2016 End: 07-30-2017 Hydrocodone-Acetami nophen 1 EACH tablet Discontinued 1 NMA PO EVERY 4 HOURS NEEDED as needed for Pain October 18, 2016 12:00am July 30, 2017 12:45pm Start: 10-18-2016 End: 07-30-2017 Hydrocodone-Acetaminophen Di scontinued 1 EACH PO EVERY 4 HOURS NEEDED October 17, 2016 11:00pm July 30, 2017 11:45am amphetamine aspartate 5 mg / amphetamine sulfate 5 mg / dextroamphetamine saccharate 5 mg / dextroamphetamine sulfate 5 mg oral tablet (2 sources) Central Nervous System Stimulant Start: 02-16-2017 take 1 tablet by mouth once daily ADDERALL 20 MG TABS One tablet by mouth daily AMPHETAMINE-DEXTROAMPHETAMINE [id number] Seb Valeri [place] Start: 02-16-2017 take 1 tablet by rocio th once daily ADDERALL 20 MG TABS One tablet by mouth daily AMPHETAMINE-DEXTROAMPHETAMINE [id number] Seb Be ARIPiprazole 5 mg oral tablet (20 sources) Atypical Antipsychotic Start: 11-27-2019 End: 10-25-2023 take 7.5 mg by mouth once daily Aripiprazole 5 mg tablet Discontinued 7.5 mg PO DAILY 135 1 December 15, 2022 1:03pm March 28, 2023 5:58pm Start: 11-27-2019 End: 03-28-2023 take 7.5 mg by mouth once daily Aripiprazole Discontin ued 7.5 MG PO DAILY 135 December 15, 2022 12:03pm March 28, 2023 4:58pm Start: 12-25-2018 End: 11-27-2019 take 1 tablet by mouth once daily Aripiprazole 5 mg tablet Discontinued 5 mg PO DAILY 90 2 November 21, 2019 11:27am November 27, 2019 5:16pm 12 hr buPROPion hydrochloride 150 mg extended release oral tablet (12 sources) Aminoketone Start: 02-01-2022 End: 09-20-2022 take 1 tablet by mouth twice daily Bupropion Hcl 150 mg tablet sustained-release 12 hr Discontinued 150 mg PO TWICE A DAY 60 3 February 01, 2022 12:00am September 20, 2022 8:55am cariprazine 1.5 mg oral capsule (9 sources) Atypical Antipsychotic Start: 10-25-2023 End: 09-24-2024 take 1 capsule by mouth once daily Cariprazine (Vraylar) 1.5 mg capsule Discontinued 1.5 mg PO DAILY 90 1 March 07, 2024 5:08pm September 24, 2024 7:35pm Dextroamphetamine- Amphetamine 10 mg tablet (3 sources) Start: 06-19-2024 End: 06-26-2024 Dextroamphetamine-Amph etamine 10 mg tablet Discontinued 1 {tbl} PO 0 June 19, 2024 1:00am June 26, 2024 10:32am Start: 06-19-2024 End: 06-26-2024 Dextroamphetamine-Amphetamin e 10 mg tablet Discontinued 1 {tbl} PO June 19, 2024 1:00am June 26, 2024 10:32am DULoxetine 30 mg delayed release oral capsule (19 sources) Serotonin and Norepinephrine Reuptake Inhibitor Start: 06-19-2024 End: 06-19-2024 take 1 capsule by mouth once Duloxetine 30 mg capsule,delayed release(DR/EC) Discontinued 30 mg PO ONCE June 19, 2024 6:39pm June 19, 2024 7:16pm Start: 03-28-2023 End: 01-08-2025 take 1 capsule by mouth twice daily Duloxetine 30 mg capsule,delayed release(DR/EC) Discontinued 30 mg PO TWICE A DAY 180 December 10, 2023 12:54pm June 19, 2024 6:40pm escitalopram 20 mg oral tablet (20 sources) Serotonin Reuptake Inhibitor Start: 07-30-2017 End: 10-03-2017 take 1 tablet by mouth once daily Escitalopram Oxalate (Lexapro) 20 mg tablet Discontinued 20 mg PO daily July 30, 2017 1:00am July 30, 2017 12:52pm Start: 07-25-2017 End: 07-30-2017 take 1.5 tablets by mouth once daily Escitalopram Oxalate 10 MG tablet Discontinued 0 PO DAILY July 25, 2017 9:33am July 30, 2017 12:46pm 1.5 tab PO DAILY Start: 02-16-2017 take 1 tablet by rocio th once daily LEXAPRO 20 MG ORAL TABS (ESCITALOPRAM OXALATE) One tablet by mouth daily Bety Jama NP Start: 09-25-2016 End: 07-30-2017 take 1 tablet by mouth once daily Escitalopram Oxalate 10 MG tablet Discontinued 10 mg PO DAILY September 25, 2016 12:00am July 25, 2017 9:34am ibuprofen 800 mg oral tablet (14 sources) Nonsteroidal Anti-inflammatory Drug Start: 11-02-2021 End: 02-01-2022 take 1 tablet by mouth every eight hours as needed for pain Ibuprofen 800 mg tablet Discontinued 800 mg PO Q8H as needed for pain 30 0 November 02, 2021 12:00am February 01, 2022 11:19am methylPREDNISolone 4 mg oral tablet (2 sources) Corticosteroid Start: 01-17-2025 End: 02-09-2025 take 1 tablet by mouth once Methylprednisolone (Medrol (Micah)) 4 mg tablets,dose pack Discontinued 0 PO per package directions 21 January 17, 2025 12:00am February 09, 2025 7:32am PO PER PKG DIR for 6 days naproxen 500 mg oral tablet (14 sources) Nonsteroidal Anti-inflammatory Drug Start: 10-05-2016 End: 07-30-2017 take 1 tablet by mouth twice daily as needed for pain Naproxen 500 MG tablet Discontinued 500 mg PO TWICE DAILY NEEDED as needed for Pain 40 October 05, 2016 12:00am July 30, 2017 12:45pm omeprazole 40 mg delayed release oral capsule (14 sources) Proton Pump Inhibitor Start: 06-23-2021 End: 02-01-2022 take 1 capsule by mouth once daily Omeprazole 40 mg capsule,delayed release(DR/EC) Discontinued 40 mg PO DAILY 90 June 23, 2021 1:00am February 01, 2022 11:19am predniSONE 10 mg oral tablet (10 sources) Start: 05-15-2022 End: 06-13-2022 take 4 tablets by mouth once daily at mealtime Prednisone 10 mg tablet Discontinued 10 mg PO DAILY 30 May 15, 2022 1:00am June 13, 2022 9:48am Take 4 tablets for 3 days; Take 3 tablets for 3 days; Take 2 tablets for 3 days; Take 1 tablet for 3 days Take with food or milk sertraline 100 mg oral tablet (20 sources) Serotonin Reuptake Inhibitor Start: 10-12-2021 End: 03-28-2023 take 2 tablets by mouth once daily Sertraline 100 mg tablet Discontinued 0 .ROUTE .COMPLEX 180 3 January 09, 2023 11:33pm March 28, 2023 5:57pm take 2 tablets by mouth once daily Start: 10-12-2021 End: 03-28-2023 take 2 tablets by mouth once daily Sertraline Discontinued 0 .ROUTE .COMPLEX 180 January 09, 2023 10:33pm March 28, 2023 4:57pm take 2 tablets by mouth once daily Start: 08-19-2020 End: 04-11-2021 take 1 tablet by mouth once daily Sertraline Discontinued 0 .ROUTE .COMPLEX 90 January 04, 2021 2:36pm April 11, 2021 2:48pm take 1 tablet by mouth once daily Start: 02-25-2020 End: 10-12-2021 take 1 tablet by mouth once daily Sertraline 100 mg tablet Discontinued 100 mg PO DAILY 90 3 October 04, 2021 4:59pm October 12, 2021 5:51pm Start: 10-03-2017 End: 02-25-2020 take 1 tablet by mouth once daily Sertraline 50 mg tablet Discontinued 0 .ROUTE .COMPLEX 90 1 October 16, 2019 9:33am February 25, 2020 5:11pm take 1 tablet by mouth once daily Tirzepatide (Weight Loss) (3 sources) Start: 02-13-2024 End: 06-19-2024 Tirzepatide (Weight Loss) (Z epbound) 2.5 mg/0.5 mL pen injector Discontinued 2.5 mg SC EVERY WEEK 2 0 February 13, 2024 12:00am June 19, 2024 6:37pm for 4 weeks Start: 02-13-2024 End: 06-19-2024 Tirzepatide (Weight Loss) (Z epbound) 2.5 mg/0.5 mL pen injector Discontinued 2.5 mg SC EVERY WEEK 2 February 13, 2024 12:00am June 19, 2024 6:37pm for 4 weeks triamcinolone acetonide 1 mg/ml topical cream (12 sources) Corticosteroid Start: 02-01-2022 End: 09-20-2022 Triamcinolone Acetonide 0.1 % cream Discontinued 1 NMA TOPICAL TWICE A DAY as needed for rash 80 1 February 01, 2022 12:00am September 20, 2022 8:55am varenicline 1 mg oral tablet (20 sources) Partial Cholinergic Nicotinic Agonist Start: 09-17-2020 End: 02-02-2021 take 1 tablet by mouth twice daily, then take 1 tablet by mouth once Varenicline Tartrate (Chantix Continuing Month Box) 1 mg tablet Discontinued 1 mg PO TWICE A DAY 56 3 November 25, 2020 5:03pm February 02, 2021 3:08pm Start: 09-17-2020 End: 02-02-2021 take 1 tablet by mouth once Varenicline Tartrate (Irby tix Starting Month Box) 0.5 mg (11)- 1 mg (42) tablets,dose pack Discontinued 0 PO per package directions 53 0 September 17, 2020 12:00am February 02, 2021 3:08pm PO PER PKG DIR Problems Active Problems Problem Classification Problem Date Documented Date Episodic/Chronic Abdominal pain (20 sources) Right upper quadrant pain; Translations: [Right upper quadrant pain] 06-23-2021 Episodic Allergic reactions (15 sources) Inflammatory dermatosis; Translations: [Dermatitis, unspecified] Episodic Anxiety disorders (20 sources) Mixed anxiety and depressive disorder; Translations: [Other specified anxiety disorders] Chronic Chronic obstructive pulmonary disease and bronchiectasis (2 sources) Bronchitis; Translations: [Bronchitis, not specified as acute or chronic] 01-17-2025 Episodic Disorders of lipid metabolism (16 sources) Hyperlipidemia; Translations: [Hyperlipidemia, unspecified] 12-25-2019 Chronic Disorders usually diagnosed in infancy, childhood, or adolescence (20 sources) Attention deficit hyperactivity disorder, predominantly inattentive type; Translations: [Other specified behavioral and emotional disorders with onset usually occurring in childhood and adolescence] Chronic Endometriosis (14 sources) Endometriosis (clinical); Translations: [Endometriosis, unspecified] 10-03-2017 Chronic Essential hypertension (20 sources) Hypertensive disorder; Translations: [Essential (primary) hypertension] Onset: 02-09-2025 Chronic Genitourinary symptoms and ill-defined conditions (6 sources) Increased frequency of urination; Translations: [Frequency of micturition] Onset: 11-18-2024 03-28-2023 Episodic Headache; including migraine (12 sources) Headache; Translations: [Headache] 12-25-2022 Episodic Menopausal disorders (14 sources) Atrophic vaginitis; Translations: [Postmenopausal atrophic vaginitis] 01-01-2020 Chronic Menopausal disorders (16 sources) Hormone replacement therapy; Translations: [Drug therapy status] Onset: 02-21-2017 02-21-2017 Episodic Mood disorders (20 sources) Recurrent depression; Translations: [Bipolar disorder, most recent episode depression] Onset: 02-21-2017 02-21-2017 Chronic Nonspecific chest pain (14 sources) Chest pain; Translations: [Chest pain, unspecified] 05-05-2013 Episodic Other connective tissue disease (1 source) Pain in left toe(s); Translations: [Pain in limb] Episodic Other connective tissue disease (6 sources) Muscle pain; Translations: [Myalgia, unspecified site] 02-14-2023 Episodic Other diseases of bladder and urethra (5 sources) Overactive bladder; Translations: [Overactive bladder] 03-28-2023 Chronic Other diseases of bladder and urethra (3 sources) Overactive bladder; Translations: [Hypertonicity of bladder] 03-28-2023 Chronic Other lower respiratory disease (2 sources) Wheezing; Translations: [Wheezing] 06-13-2022 Episodic Other lower respiratory disease (2 sources) Wheezing; Translations: [Wheezing] 01-17-2025 Episodic Other nervous system disorders (2 sources) Paresthesia of skin; Translations: [Disturbance of skin sensation] Episodic Other non-traumatic joint disorders (2 sources) Pain in unspecified hip; Translations: [Pain in joint, pelvic region and thigh] Episodic Other nutritional; endocrine; and metabolic disorders (10 sources) Morbid obesity; Translations: [Morbid (severe) obesity due to excess calories] 02-01-2022 Chronic Other nutritional; endocrine; and metabolic disorders (12 sources) Body mass index 30+ - obesity; Translations: [Obesity, unspecified] 02-01-2022 Chronic Other nutritional; endocrine; and metabolic disorders (10 sources) Morbid (severe) obesity due to excess calories; Translations: [Morbid obesity] Onset: 02-09-2025 Chronic Other nutritional; endocrine; and metabolic disorders (3 sources) Body mass index 40+ - severely obese 10-25-2023 Chronic Other screening for suspected conditions (not mental disorders or infectious disease) (1 source) No current problems or disability 02-16-2017 Residual codes; unclassified (14 sources) Obstructive sleep apnea syndrome; Translations: [Obstructive sleep apnea (adult) (pediatric)] 07-14-2021 Chronic Residual codes; unclassified (14 sources) Hypersomnia; Translations: [Hypersomnia, unspecified] 03-03-2021 Chronic Residual codes; unclassified (3 sources) Obstructive sleep apnea (adult) (pediatric); Translations: [Obstructive sleep apnea (adult)(pediatric)] Chronic Residual codes; unclassified (14 sources) Tobacco user; Translations: [Tobacco use] 11-25-2020 Episodic Residual codes; unclassified (5 sources) Tobacco use; Translations: [Tobacco use disorder] Episodic Substance-related disorders (2 sources) Nicotine dependence; Translations: [Nicotine dependence, unspecified, uncomplicated] 01-17-2025 Chronic Unclassified (2 sources) Screening mammography ; Translations: [Encounter for screening mammogram for malignant neoplasm of breast] Onset: 02-21-2017 02-21-2017 Unclassified (2 sources) E66.01 - Morbid (severe) obesity due to excess calories Viral infection (12 sources) Disease caused by 2019-nCoV; Translations: [COVID-19] 02-14-2023 Episodic Past or Other Problems Problem Classification Problem Date Documented Da te Episodic/Chronic Nonmalignant breast conditions (6 sources) Pain of breast; Translations: [Mastodynia] Onset: 07-21-2024 06-19-2024 Episodic Results Test Name Value Interpretation Reference Range Facility Internal Medicine Office Vis iton 02-09-2025 Internal Medicine Office Visit [facility] [address] [place] [address] [place] [address] OFFICE VISIT Date of Service: 02/09/25 MR#: [id number] Acct: [id number] Name: SUNSHINE BENNETT Rep #: [id number] : 1980 Provider: Dr. Mariah lo MD Age/Sex: 44/F Location: [facility] Status: Signed Intake Vital Signs 01/17/25 08:54 02/09/25 07:33 Height 5 ft 5 in 5 ft 5 in Weight: 285 lb 283 lb BMI 47.4 47.0 BP 126/88 H 118/76 Blood Pressure Location Lt brachial Position Sitting Sitting Respiration 18 16 Pulse 83 98 Pulse Source Monitor Temp 98.6 F 97.3 F L Temp Source Oral Temporal Pulse Oximetry (%) 97 99 Oxygen Delivery Method room air room air Intake Visit Reasons: 3 M FU Chief Complaint: FU Chronic Conditions, Weight Concerns. 911 Operator Required: No Is patient in pain?: No Allergies amoxicillin Allergy (Verified 02/09/25 07:27) Other Penicillins Allergy (Verified 02/09/25 07:27) Hives Medications ???Medication ???Instructions ???Recorded ???Confirmed ???Type alprazolam 0.25 mg tablet (Xanax) 0.25 mg PO DAILY PRN anxiety #10 03/15/22 02/09/25 Rx tabs estradiol 1 mg tablet 1 mg PO DAILY #90 tabs 09/07/24 Rx cariprazine 1.5 mg capsule 1.5 mg PO DAILY #90 caps 09/24/24 02/09/25 Rx (Vraylar) duloxetine 30 mg capsule,delayed 30 mg PO BID 3 months #180 caps 02/09/25 Rx release dextroamphetamine-amphe tamine 10 1 tab PO BID 30 days #60 tabs 12/1702/09/25 Rx mg tablet oxybutynin chloride 5 mg 5 mg PO QDAY #90 tabs 01/12/25 Rx tablet,extended release 24 hr albuterol sulfate 90 mcg/actuation 2 puff inhalation Q4-6H PRN 08/1202/09/25 Rx aerosol inhaler (Ventolin HFA) shortness of breath or wheezing #6.7 grams gabapentin 300 mg capsule 300 mg PO TID #90 caps 02/03/25 Rx topiramate 25 mg tablet (Topamax) 25 mg PO BID #60 tabs 02/09/25 Rx PFSH Medical History (Updated 02/09/25 @ 08:[address] Mariah Aranda MD) Neuropathy Morbid obesity Pain of both breasts BMI greater than 40 OAB (overactive bladder) Urinary frequency COVID Headache Dermatitis Obesity (BMI 30-39.9) JOSIANE (obstructive sleep apnea) RUQ pain Hypersomnolence Tobacco abuse Anxiety and depression Iron deficiency Vitamin D deficiency IBS (irritable bowel syndrome) History of migraine headaches Gastrointestinal problem H/O emotional problems Anemia ADD (attention deficit disorder) Endometriosis Surgical History History of total vaginal hysterectomy (TVH) Family History Father Diabetes Grandfather Cardiomyopathy Other Heart disease depression Social History Smoking Status: Current every day smoker tobacco type: cigarettes alcohol intake: current alcohol intake frequency: holidays/special occasions only substance use type: does not use caffeine: Yes what type of physical activity do you participate in: walking frequency: 1-2 times per week seatbelt use: never do you feel safe at home: Yes additional social history: 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 Details: SUNSHINE BENNETT, is a 44-year-old female presenting with concerns regarding weight management. The patient has been attempting weight loss for the last three weeks without significant results. Despite restricting meals, abstaining from sweets, and increasing physical activity, there has been no observable reduction in weight. The patient expresses frustration and concerns that her current medications may be contributing to her weight gain. She reports that a past weight management program was not utilized. An attempt was also made at the GLP-1 however this was not covered by insurance. Additionally, the patient has a history of neuropathy affecting her legs, currently managed with gabapentin, and a smoking history which she is attempting to address. She also experiences a significant increase in appetite described as ravishing. Despite these challenges, her mood has been stable, and she is on a regimen of duloxetine and Vraylar. Other chronic medical conditions are stable. History of ADHD currently on Adderall. No new concerns reported in that regard. Attestation: Documentation on this patient encounter was supported using ambient scribe technology/ voice AI technology. The patient consented to recording for the purpose of documenting the encounter. Provider reviewed content of the generated note prior to signature. ROS Const Constitutional: No body ache, chills, excessive sweating, fatigue, (more content not included)... Normal [facility] Urgent Care Visit Reporton 0 01-17-2025 Urgent Care Visit Report [facility] [address], [address] [place] [address] OFFICE VISIT Date of Service: 01/17/25 MR#: [id number] Acct: [id number] Name: SUNSHINE BENNETT Rep #: [id number] : 1980 Provider: WILLARD Corbett Age/Sex: 44/F Location: [facility] Status: Signed Intake Vital Signs 09/25/24 17:48 01/17/25 08:54 Height 5 ft 5 in 5 ft 5 in Weight: 278 lb 285 lb BMI 46.2 47.4 BP 118/70 126/88 H Blood Pressure Location Lt brachial Position Sitting Sitting Respiration 16 18 Pulse 69 83 Pulse Source Monitor Temp 96.9 F L 98.6 F Temp Source Temporal Oral Pulse Oximetry (%) 99 97 Oxygen Delivery Method room air room air Intake Visit Reasons: WHEEZING, COUGH Chief Complaint: cough,wheezing Allergies amoxicillin Allergy (Verified 01/17/25 08:55) Other Penicillins Allergy (Verified 01/17/25 08:55) Hives Medications ???Medication ???Instructions ???Recorded ???Confirmed ???Type alprazolam 0.25 mg tablet (Xanax) 0.25 mg PO DAILY PRN anxiety #10 03/15/22 09/25/24 Rx tabs gabapentin 300 mg capsule 300 mg PO TID #90 caps 08/25/24 Rx estradiol 1 mg tablet 1 mg PO DAILY #90 tabs 09/07/24 Rx cariprazine 1.5 mg capsule 1.5 mg PO DAILY #90 caps 09/24/24 09/25/24 Rx (Vraylar) duloxetine 30 mg capsule,delayed 30 mg PO BID 3 months #180 caps Rx release dextroamphetamine-amphe tamine 10 1 tab PO BID 30 days #60 tabs 12/17 02/09 Rx mg tablet oxybutynin chloride 5 mg 5 mg PO QDAY #90 tabs 01/12/25 Rx tablet,extended release 24 hr albuterol sulfate 90 mcg/actuation 2 puff inhalation Q4-6H PRN 08/08/1201/17/25 Rx aerosol inhaler (Ventolin HFA) shortness of breath or wheezing #6.7 grams ipratropium 0.5 mg-albuterol 3 mg #1 Samples 01/17/25 01/17/25 Samp le (2.5 mg base)/3 mL nebulization soln methylprednisolone 4 mg tablets in See Rx Instructions PO PER PKG D IR 01/17/25 01/17/25 Rx a dose pack (Medrol (Micah)) #21 tabs Nurse's Note: Patient has cough and wheezing and SOB going on since . Patient isn't coughing up anything. [facility] Medical History (Updated 01/17/25 @ 09:29 by WILLARD Rangel) Pain of both breasts BMI greater than 40 OAB (overactive bladder) Urinary frequency COVID Headache Dermatitis Obesity (BMI 30-39.9) JOSIANE (obstructive sleep apnea) RUQ pain Hypersomnolence Tobacco abuse Anxiety and depression Iron deficiency Vitamin D deficiency IBS (irritable bowel syndrome) History of migraine headaches Gastrointestinal problem H/O emotional problems Anemia ADD (attention deficit disorder) Endometriosis Surgical History History of total vaginal hysterectomy (TVH) Family History Father Diabetes Grandfather Cardiomyopathy Other Heart disease depression Social History Smoking Status: Current every day smoker tobacco type: cigarettes alcohol intake: current alcohol intake frequency: holidays/special occasions only substance use type: does not use caffeine: Yes what type of physical activity do you participate in: walking frequency: 1-2 times per week seatbelt use: never do you feel safe at home: Yes additional social history: 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 something- chills all morning -tried so far Dayquil, Nyquil, albuterol nebulizer (her mothers)- stopped the coughing but not the wheezing -no hx asthma or copd -+ smoker ROS Const Constitutional: Positive for other (ROS negative x6 except what was placed in HPI) Exam Const General: cooperative, comfortable and no acute distress Orientation: alert, awake and oriented x3 HENMT Head: normal to inspection and normocephalic Ears: hearing grossly normal bilaterally, external ears normal and TM's normal bilaterally Nose: external nose normal and other (+ congestion and rhinorrhea) Face and sinus: normal facial exam, sinuses nontender and face symmetric Mouth: oral mucosae normal, lip normal, tongue normal, oropharynx normal and moist mucous membranes Throat: posterior oropharynx normal, tonsils normal, uvula midline and postnasal drainage Neck Neck: normal visual inspection, full ROM and no lymphadenopathy Resp Effort Inspection: normal respiratory effort, able to speak in complete sentences and symmetric chest movement Auscultation: Bilateral: Clear to Auscultation (all 4 l (more content not included)... Normal [facility] Urine Cultureon 11-14-2024 URC Culture exhibits no growth. Normal [facility] Comment on above: Performed By: #### L 400.0001, M100.0 #### [facility] [address] [place], [place], [id number] Bilirubin Test strip Ql (U)O rdered By: Efewongbe Salimae on 11-13-2024 Bilirubin Ql (U) Negative Negative [facility] Ketones Test strip Ql (U)Ord ered By: Efewongbe Oleghe on 11-13-2024 Ketones Ql (U) Negative Negative [facility] Microscopic analysis of urin e for red blood cells (RBC)Ordered By: Mariah Aranda on 11-13-2024 Microscopic analysis of urine for red blood cells (RBC) 0 SEEN /hpf 0-5 [facility] Mucus LM Ql (Urine sed)Order ed By: Marialuisaongbe Salimae on 11-13-2024 Mucus Ql (Urine sed) 0 SEEN /hpf [facility] Nitrite Test strip Ql (U)Ord ered By: Efewongbe Oleghe on 11-13-2024 Nitrite Ql (U) Negative Negative [facility] Protein Test strip Ql (U)Ord ered By: Efewongbe Oleghe on 11-13-2024 Protein Ql (U) Negative Negative [facility] Squamous epithelial cells de tection in urine sediment by light microscopyOrdered By: Marialuisaongandrew Aranda on 11-13-2024 Epithelial cells.squamous LM Ql (Urine sed) 0 SEEN /hpf 5-10 [facility] Urinalysis, Completeon 11-13 BACTERIA 0 SEEN Normal None Seen [facility] Comment on above: Order Comment: ALANA GARCÍA TO SPECIFY Performed By: #### L 400.0001, M100.0 #### [facility] [address] [place], [address] EPI,SQUAMOUS 0 SEEN Normal 5-10 [facility] Comment on above: Order Comment: COLLE CTOR TO SPECIFY Performed By: #### L 400.0001, M100.2200 #### [facility] [address] [place], [address] Mucus Ql (Urine sed) 0 SEEN Normal [facility] Comment on above: Order Comment: COLLE CTOR TO SPECIFY Performed By: #### L 400.0001, M100.2200 #### [facility] [address] [place], [address] RBC 0 SEEN Normal 0-5 [facility] Comment on above: Order Comment: COLLE CTOR TO SPECIFY Performed By: #### L 400.0001, M100.2200 #### [facility] [address] [place], [address] WBC 0 SEEN Normal 0-5 [facility] Comment on above: Order Comment: COLLE CTOR TO SPECIFY Performed By: #### L 400.0001, M100.2200 #### [facility] [address] [place], [address] Urine clarityOrdered By: Walker Aranda on 11-13-2024 Clarity (U) Clear Clear [facility] Urine color determinationOrd ered By: Mariah Aranda on 11-13-2024 Color (U) Yellow Yellow [facility] Urine cultureOrdered By: Walker Aranda on 11-13-2024 Bacteria identified Cx Nom (U) Culture exhibits no growth. [facility] Urine glucose detectionOrder ed By: Mariah Aranda on 11-13-2024 Glucose Ql (U) Normal mg/dl Normal [facility] Urine leukocyte esterase det ection by dipstickOrdered By: Mariah Aranda on 11-13-2024 Leukocyte esterase Test strip Ql (U) Negative Negative [facility] Urine pHOrdered By: Alhaji Aranda on 11-13-2024 pH (U) 7.0 [pH] 5.0 - 8.0 [facility] Urine sediment bacteria coun t by microscopy (number/high power field)Ordered By: Mariah Aranda on 11-13-2024 Bacteria LM.HPF (Urine sed) [#/Area] 0 /[HPF] None Seen [facility] Urine specific gravity measu rementOrdered By: Mariah Aranda on 11-13-2024 Specific gravity (U) [Rel density] 1.005 1.002-1.030 [facility] Urine urobilinogen measureme ntOrdered By: Mariah Aranda on 11-13-2024 Urobilinogen Ql (U) Normal mg/dl Normal [facility] White blood cell countOrdere d By: Mariah Aranda on 11-13-2024 White blood cell count 0 SEEN /hpf 0-5 [facility] Internal Medicine Office Vis iton 09-25-2024 Internal Medicine Office Visit [facility] [address] [place] [address] [place] [address] OFFICE VISIT Date of Service: 09/25/24 MR#: [id number] Acct: [id number] Name: SUNSHINE BENNETT Rep #: [id number] : 1980 Provider: Dr. Mariah lo MD Age/Sex: 44/F Location: [facility] Status: Signed Intake Vital Signs 06/19/24 17:41 09/25/24 17:48 Height 5 ft 5 in 5 ft 5 in Weight: 278 lb BMI 46.2 BP 118/70 Blood Pressure Location Lt brachial Position Sitting Respiration 16 Pulse 69 Pulse Source Monitor Temp 96.9 F L Temp Source Temporal Pulse Oximetry (%) 99 Oxygen Delivery Method room air Intake Visit Reasons: 3 M FU Chief Complaint: Follow-up chronic conditions 911 Operator Required: No Is patient in pain?: No Allergies amoxicillin Allergy (Verified 06/19/24 17:33) Other Penicillins Allergy (Verified 06/19/24 17:33) Hives Medications ???Medication ???Instructions ???Recorded ???Confirmed ???Type alprazolam 0.25 mg tablet (Xanax) 0.25 mg PO DAILY PRN anxiety #10 03/15/22 09/25/24 Rx tabs duloxetine 30 mg capsule,delayed 30 mg PO BID 3 months #180 caps 09/25/24 Rx release gabapentin 300 mg capsule 300 mg PO TID #90 caps 08/25/24 Rx estradiol 1 mg tablet 1 mg PO DAILY #90 tabs 09/07/24 Rx dextroamphetamine-amphe tamine 10 1 tab PO BID 30 days #60 tabs 08/1709/25/24 Rx mg tablet cariprazine 1.5 mg capsule 1.5 mg PO DAILY #90 caps 09/24/24 09/25/24 Rx (Vraylar) Nurse's Note: States she has been w/o vraylar for a week as the pharmacy is out of stock and does not know if other pharmacies have it in stock. She feels very blah and unmotivated. [facility] Medical History (Updated 09/25/24 @ 18:[address] Mariah Aranda MD) Pain of both breasts BMI greater than 40 OAB (overactive bladder) Urinary frequency COVID Headache Dermatitis Obesity (BMI 30-39.9) JOSIANE (obstructive sleep apnea) RUQ pain Hypersomnolence Tobacco abuse Anxiety and depression Iron deficiency Vitamin D deficiency IBS (irritable bowel syndrome) History of migraine headaches Gastrointestinal problem H/O emotional problems Anemia ADD (attention deficit disorder) Endometriosis Surgical History History of total vaginal hysterectomy (TVH) Family History Father Diabetes Grandfather Cardiomyopathy Other Heart disease depression Social History Smoking Status: Current every day smoker tobacco type: cigarettes alcohol intake: current alcohol intake frequency: holidays/special occasions only substance use type: does not use caffeine: Yes what type of physical activity do you participate in: walking frequency: 1-2 times per week seatbelt use: never do you feel safe at home: Yes additional social history: 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 1. Little interest or pleasure in doing things: nearly every day 2. Feeling down, depressed, or hopeless: nearly every day 3. Trouble falling or staying asleep, or sleeping too much: not at all 4. Feeling tired or having little energy: nearly every day 5. Poor appetite or overeating: not at all 6. Feeling bad about yourself - or that you are a failure or have let yourself and your family down: nearly every day 7. Trouble concentrating on things, such as reading the newspaper or watching television: several days 8. Moving or speaking so slowly that other people could have noticed? - Or the opposite - being so fidgety or restless that you have been moving around a lot more than usual: not at all 9. Thoughts that you would be better off or of hurting yourself in some way: not at all Total score: 13 If you checked off any problems, how difficult have these problems made it for you to do your work, take care of things at home, or get along with other people?: somewhat difficult Source: Developed by Drs. Agustin Mosqueda, Neva Varma, Leobardo Cameron and colleagues, with an educational randall from [employer]. ROHIT-7 BMS ROHIT-7 Feeling nervous, anxious, or on edge: 0 = Not at all Not being able to stop or control worryin = Not at all Worrying too much about different things: 1 = Several days Trouble relaxin = Nearly every day Being so restless that it is hard to sit still: 0 = Not at all Becoming easily annoyed or irritable: 3 = Nearly every day Feeling afraid as if something awful might happen: 0 = Not at all Total ROHIT-7 score (0-4 normal; 5-9 mild; 10-14 moderate; 15-21 severe): 7 Source: Developed by Drs. Agustin Iqbal (more content not included)... Normal [facility] Breast Limited Unilateralon 06-30-2024 Breast Limited Unilateral [facility] Imaging Services [address], [place] [id number] Breast Limited Unilateral MR#: [id number] Acct: [id number] Name: SUNSHINE BENNETT Rep #: [id number] : 1980 F 43 From: Juancarlos lópez MD PCP: Dr. Mariah Aranda MD Status: REG CLI Study: Breast Limited Unilateral Date of Exam: Exam# [id number] Ordering Dr: [place] [id number] STUDY: ULTRASOUND BREAST - RIGHT REASON FOR EXAM: Female, 43 years old. Right retroareolar tenderness. TECHNIQUE: Axial and longitudinal images of the RIGHT breast were performed with a high resolution ultrasound transducer. # OF IMAGES: 60 COMPARISON: Comparison is made with prior mammogram done earlier in the day. FINDINGS: RIGHT Breast: The retroareolar region of the breast was examined with ultrasound. No sonographic abnormality is seen. IMPRESSION: No sonographic abnormality is seen. ASSESSMENT CATEGORY: BIRADS Category 1: Negative. A letter regarding these results will be sent to the patient by the facility within 30 days. Electronically Signed: Juancarlos Bravo MD at 14:54 EST , [id number] STUDY: ULTRASOUND BREAST - LEFT REASON FOR EXAM: Female, 43 years old. Left axillary tenderness. TECHNIQUE: Axial and longitudinal images of the LEFT breast were performed with a high resolution ultrasound transducer. # OF IMAGES: 60 COMPARISON: Comparison is made with prior mammogram done earlier in the day. FINDINGS: LEFT Breast: The axillary region of the left breast was examined with ultrasound. No sonographic abnormality is seen. US/Breast Limited Unilateral IMPRESSION: No sonographic abnormality is seen. ASSESSMENT CATEGORY: BIRADS Category 1: Negative. A letter regarding these results will be sent to the patient by the facility within 30 days. Electronically Signed: Juancarlos Bravo MD at 14:56 EST , CC: Dr. Mariah Aranda MD Housekeeping Aide: Signed Normal [facility], [facility] Imaging Services [address] [place] [id number] DIAG MAMM W/CAD, [facility] MR#: [id number] Acct: [id number] Name: SUNSHINE BENNETT Rep #: [id number] : 1980 F 43 From: Juancarlos lópez MD PCP: Dr. Mariah Aranda MD Status: REG CL Study: DIAG MAMM W/CAD, BILAT Date of Exam: 06/30/24 Exam# [id number] Ordering Dr: [place] [id number] MAMMOGRAPHY - BILATERAL DIAGNOSTIC REASON FOR EXAM: Female, 43 years old. PERTINENT HISTORY: Bilateral breast pain. More prominent in the left axillary region and right periareolar region. TECHNIQUE: Digital bilateral breast vicente (3D mammographic acquisition) in the CC and MLO projections. 2-D mediolateral oblique (MLO) and craniocaudad (CC) views of both breasts were obtained. CAD: Full Field Digital Mammography with Computer Added Detection was performed. COMPARISON: Comparison is made with prior study dated May 18, 2023 and April 27, 2022. FINDINGS: Breast Composition: There are scattered areas of fibroglandular density. There are no dominant masses or suspicious calcifications. No other significant abnormalities are identified. There has been no significant change since the prior study. BI/DIAG MAMM W/CAD, BILAT IMPRESSION: Stable bilateral diagnostic mammogram. With the patient''s history of bilateral breast pain, correlation with ultrasound is recommended. ASSESSMENT CATEGORY: BIRADS Category 0: Incomplete. Need additional imaging evaluation. A letter regarding these results will be sent to the patient by the facility within 30 days. Approximately 10% of breast cancers are not detected by mammography. A normal mammogram should not delay biopsy of a clinically suspicious abnormality. Electronically Signed: Juancarlos Bravo MD at 11:01 EST , CC: Dr. Mariah Aranda MD Housekeeping Aide: Signed Normal [facility] Internal Medicine Office Vis itoella 06-19-2024 Internal Medicine Office Visit [facility] [address] [place], [place] [address] OFFICE VISIT Date of Service: 06/19/24 MR#: [id number] Acct: [id number] Name: SUNSHINE BENNETT Rep #: [id number] : 1980 Provider: Dr. Mariah lo MD Age/Sex: 43/F Location: [facility] Status: Signed Intake Vital Signs 02/13/24 16:44 06/19/24 17:41 Height 5 ft 5 in 5 ft 5 in Weight: 273 lb BMI 45.4 BP 122/78 H Blood Pressure Location Lt brachial Position Sitting Respiration 16 Pulse 66 Pulse Source Monitor Temp 97 F L Temp Source Temporal Pulse Oximetry (%) 99 Oxygen Delivery Method room air Intake Visit Reasons: 3 M FU Chief Complaint: Follow-up chronic conditions. Breast pain. Weight loss. 911 Operator Required: No Is patient in pain?: No (breasts) Allergies amoxicillin Allergy (Verified 06/19/24 17:33) Other Penicillins Allergy (Verified 06/19/24 17:33) Hives Medications ???Medication ???Instructions ???Recorded ???Confirmed ???Type alprazolam 0.25 mg tablet (Xanax) 0.25 mg PO DAILY PRN anxiety #10 03/15/22 06/19/24 Rx tabs estradiol 2 mg tablet See Rx Instructions .Route 07/11/23 06/19/24 Rx .COMPLEX #90 tabs cariprazine 1.5 mg capsule 1.5 mg PO DAILY #90 caps 03/07/24 06/19/24 Rx (Vraylar) gabapentin 300 mg capsule 300 mg PO TID #90 caps 05/28/24 06/19/24 Rx dextroamphetamine-amphe tamine 10 1 tab PO 06/19/24 06/19/24 History mg tablet duloxetine 30 mg capsule,delayed 30 mg PO BID 3 months #180 caps 06/19/24 Rx release PFSH Medical History (Updated 06/19/24 @ 18:[address] Mariah Aranda MD) Pain of both breasts BMI greater than 40 OAB (overactive bladder) Urinary frequency COVID Headache Dermatitis Obesity (BMI 30-39.9) JOSIANE (obstructive sleep apnea) RUQ pain Hypersomnolence Tobacco abuse Anxiety and depression Iron deficiency Vitamin D deficiency IBS (irritable bowel syndrome) History of migraine headaches Gastrointestinal problem H/O emotional problems Anemia ADD (attention deficit disorder) Endometriosis Surgical History History of total vaginal hysterectomy (TVH) Family History Father Diabetes Grandfather Cardiomyopathy Other Heart disease depression Social History Smoking Status: Current every day smoker tobacco type: cigarettes alcohol intake: current alcohol intake frequency: holidays/special occasions only substance use type: does not use caffeine: Yes what type of physical activity do you participate in: walking frequency: 1-2 times per week seatbelt use: never do you feel safe at home: Yes additional social history: 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 Breast pain. Weight loss. Details: SUNSHINE BENNETT, is a 43 F who presents to the office today for follow-up of a chronic conditions. Also has some concerns. Over the last couple of months, she reports bilateral breast pain. Right greater than left. No known precipitating factor. Worse when she lays on it. No discharge reported. Last mammogram was a year ago and no concerns noted. Feels well otherwise. Recent insurance change, she would like to try weight loss medication again. We had discussed a GLP-1's in the past however this was not covered by her insurance. She has tried other measures including dietary and lifestyle changes without significant weight loss. Currently at a BMI of 45.4. Other chronic medical conditions are stable. Continues to do well for the most part on Vraylar and duloxetine. She states that she takes duloxetine daily though she has been prescribed twice daily but feels that she needs to go back up to twice daily. ROS Const Constitutional: No body ache, chills, excessive sweating, fatigue, fever(s), frequent falls, headache(s), snoring, weakness, sleep problems or change in appetite Eyes Eyes: No blurry vision, change in vision, floaters, visual disturbances, eye pain or Light sensitivity ENT ENT: No abnormal hearing, ear or mastoid pain, tinnitus, balance problems, nosebleed/epistaxis, nasal congestion, headache(s), neck pain or sore throat Resp Respiratory: No cough, excessive phlegm production, pain on inspiration, shortness of breath, snoring or wheezing Cardio Cardiology: No chest pain at rest, chest pain with exertion, excessive sweating, shortness of breath, dyspnea on exertion, lightheadedness, orthopnea or palpitations Gastro GI: No abdominal pain, change in bowel habits, constipation, cramping, diarrhea, nausea/dyspepsia or vomiting Genitourinary-Female: No burning urination, painful urination (more content not included)... Normal [facility] Internal Medicine Office Vis itoella 02-13-2024 Internal Medicine Office Visit [facility] [address] [place] [address] [place] [address] OFFICE VISIT Date of Service: 02/13/24 MR#: [id number] Acct: [id number] Name: SUNSHINE BENNETT Rep #: [id number] : 1980 Provider: Dr. Mariah lo MD Age/Sex: 43/F Location: [facility] Status: Signed Intake Vital Signs 10/25/23 16:25 02/13/24 16:44 Height 5 ft 5 in 5 ft 5 in Weight: 261 lb BMI 43.4 BP 116/72 Blood Pressure Location Lt brachial Position Sitting Respiration 14 Pulse 70 Pulse Source Monitor Temp 97 F L Temp Source Temporal Pulse Oximetry (%) 99 Oxygen Delivery Method room air Intake Visit Reasons: 3 M FU Chief Complaint: Follow-up chronic conditions. Weight concerns 911 Operator Required: No Is patient in pain?: No Allergies amoxicillin Allergy (Verified 02/13/24 16:40) Other Penicillins Allergy (Verified 02/13/24 16:40) Hives Medications ???Medication ???Instructions ???Recorded ???Confirmed ???Type alprazolam 0.25 mg tablet (Xanax) 0.25 mg PO DAILY PRN anxiety #10 03/15/22 02/13/24 Rx tabs estradiol 2 mg tablet See Rx Instructions .Route 07/11/23 02/13/24 Rx .COMPLEX #90 tabs cariprazine 1.5 mg capsule 1.5 mg PO DAILY #60 caps 10/25/23 02/13/24 Rx (Vraylar) duloxetine 30 mg capsule,delayed 30 mg PO BID #180 caps 12/10/23 02/13/24 Rx release dextroamphetamine-amphe tamine 10 10 mg PO BID 30 days #60 tabs 01/22/24 02/13/24 Rx mg tablet (Adderall) gabapentin 300 mg capsule 300 mg PO TID #90 caps 02/11/24 02/13/24 Rx tirzepatide (weight loss) 2.5 2.5 mg (0.5 mL) subcut QWEEK #2 mL 02/13/24 02/13/24 Rx mg/0.5 mL subcutaneous pen injector (Zepbound) PFSH Medical History BMI greater than 40 OAB (overactive bladder) Urinary frequency COVID Headache Dermatitis Obesity (BMI 30-39.9) JOSIANE (obstructive sleep apnea) RUQ pain Hypersomnolence Tobacco abuse Anxiety and depression Iron deficiency Vitamin D deficiency IBS (irritable bowel syndrome) History of migraine headaches Gastrointestinal problem H/O emotional problems Anemia ADD (attention deficit disorder) Endometriosis Surgical History History of total vaginal hysterectomy (TVH) Family History Father Diabetes Grandfather Cardiomyopathy Other Heart disease depression Social History Smoking Status: Current every day smoker tobacco type: cigarettes alcohol intake: current alcohol intake frequency: holidays/special occasions only substance use type: does not use caffeine: Yes what type of physical activity do you participate in: walking frequency: 1-2 times per week seatbelt use: never do you feel safe at home: Yes additional social history: 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 Weight concerns Details: SUNSHINE BENNETT, is a 43 F who presents to the office today for follow-up of her chronic medical conditions. No acute concerns at this time. Has participated in a weight loss program at work losing some weight. She however is frustrated that she has not lost more. Continues to make these dietary and lifestyle changes. Blood pressure and recent labs reviewed with better cholesterol. No known personal or family history of pancreatitis, pancreatic or thyroid cancers. Other chronic medical conditions are stable. History of ADHD on Adderall, continues to tolerate medication well. No chest pain, palpitations reported. Also history of bipolar depression currently very stable on Vraylar duloxetine. Concerned about possibly noninsurance coverage of Vraylar ROS Const Constitutional: No body ache, chills, excessive sweating, fatigue, fever(s), frequent falls, headache(s), snoring, weakness, sleep problems or change in appetite Eyes Eyes: No blurry vision, change in vision, bulging eyes, floaters, visual disturbances, eye pain or Light sensitivity ENT ENT: No abnormal hearing, ear or mastoid pain, tinnitus, balance problems, nosebleed/epistaxis, nasal congestion, headache(s), neck pain or sore throat Resp Respiratory: No cough, excessive phlegm production, pain on inspiration, shortness of breath, snoring or wheezing Cardio Cardiology: No chest pain at rest, chest pain with exertion, excessive sweating, shortness of breath, dyspnea on exertion, lightheadedness, orthopnea or palpitations Gastro GI: No abdominal pain, change in bowel habits, constipation, cramping, diarrhea, nausea/dyspepsia or vomiting Genitourinary-Female: No burning urination, painful urination, urinary incontinence, u (more content not included)... Normal [facility] Laboratory - Drug toxicology Ordered By: Mariah Aranda on 07-02-2023 Amphetamines Ql (U) Positive <1000 ng/mL [facility] Benzodiazepines Ql (U) Negative < 200 ng/mL [facility] Cannabinoids Screen Ql (U) Negative < 50 ng/mL [facility] Cocaine Ql (U) Negative < 300 ng/mL [facility] Opiates Ql (U) Negative < 300 ng/mL [facility] No Panel InformationOrdered By: Mariah Aranda on 07-02-2023 MDMA (Ecstasy) Screen Negative < 500 ng/mL [facility] Urine Barbiturates Screen Negative < 200 ng/mL [facility] Urine Drug Screen Comment [facility] Comment on above: CONFIRMATORY TESTING FOR ALL POSITIVE URINE DRUG SCREENRESULTS WILL ONLY BE SENT OUT UPON PHYSICIAN ORDER. VISTA Urine Drug Screen methods provide only preliminaryanalytical test results. A more specific alternate chemicalmethod must be used in order to obtain a confirmedanalytical result. Gas chromatography/mass spectrometery(GC/MS) is the preferred confirmatory method. Clinicalconsideration and professional judgement should be appliedto any drug of abuse test result, particularly whenpreliminary positive results are used. URINE TCA TESTING MUST BE ORDERED SEPARATELY. USE TESTMNEMONIC: [facility] Urine Methadone Screen Negative < 300 ng/mL [facility] Urine phencyclidine (PCP) de tectionOrdered By: Mariah Aranda on 07-02-2023 Phencyclidine Ql (U) Negative < 25 ng/mL [facility] Influenza virus A and B and SARS-CoV-2 (COVID-19) Ag panel - Upper respiratory specimOrdered By: Jeancarlos Pedraza on 02-14-2023 SARS-CoV-2 & FLU Antigen (Rapid) SARS-CoV-2 (COVID 19) [facility] SARS-CoV-2 & FLU Antigen (Rapid) SARS-CoV-2 (COVID 19) [facility] Basophil percentageOrdered B y: Mariah Aranda on 12-25-2022 Bilirubin [Mass/Vol] 0.50 mg/dL 0.20-1.00 [facility] Comment on above: For patients on eltr ombopag therapy, use of Dimension Emblem TBIL is not recommended. Chloride [Moles/Vol] 106 mmol/L 98-107 [facility] Glucose [Mass/Vol] 91 mg/dL 74-106 [facility] Potassium [Moles/Vol] 4.3 mmol/L 3.5-5.1 [facility] Protein [Mass/Vol] 7.0 g/dL 6.4-8.2 [facility] Sodium [Moles/Vol] 138 mmol/L 136-145 [facility] Laboratory - Chemistry and C hemistry - challengeOrdered By: Mariah Aranda on 12-25-2022 ALP [Catalytic activity/Vol] 73 U/L 45-117 [facility] ALT [Catalytic activity/Vol] 23 U/L 13-56 [facility] CO2 [Moles/Vol] 28.0 mmol/L 21.0-32.0 [facility] Globulin (S) [Mass/Vol] 3.5 g/dL 2.2-4.2 [facility] Urea nitrogen/Creatinine [Mass ratio] 14.5 mg/mg 10-20 [facility] - Drug toxicology Ordered By: Mariah Aranda on 12-25-2022 Amphetamines Ql (U) Positive <1000 ng/mL [facility] Benzodiazepines Ql (U) Negative < 200 ng/mL [facility] Cannabinoids Screen Ql (U) Negative < 50 ng/mL [facility] Cocaine Ql (U) Negative < 300 ng/mL [facility] Opiates Ql (U) Negative < 300 ng/mL [facility] No Panel InformationOrdered By: Mariah Aranda on 12-25-2022 MDMA (Ecstasy) Screen Negative < 500 ng/mL [facility] Urine Barbiturates Screen Negative < 200 ng/mL [facility] Urine Drug Screen Comment [facility] Comment on above: CONFIRMATORY TESTING FOR ALL POSITIVE URINE DRUG SCREENRESULTS WILL ONLY BE SENT OUT UPON PHYSICIAN ORDER. VISTA Urine Drug Screen methods provide only preliminaryanalytical test results. A more specific alternate chemicalmethod must be used in order to obtain a confirmedanalytical result. Gas chromatography/mass spectrometery(GC/MS) is the preferred confirmatory method. Clinicalconsideration and professional judgement should be appliedto any drug of abuse test result, particularly whenpreliminary positive results are used. URINE TCA TESTING MUST BE ORDERED SEPARATELY. USE TESTMNEMONIC: [facility] Urine Methadone Screen Negative < 300 ng/mL [facility] Estimated GFR (MDRD) Amer 97 mL/min >60 [facility] Comment on above: GFR Calc Estimated GFR (MDRD) Non-Af Amer 80 mL/min >60 [facility] Comment on above: Non- GFR Calc Serum or plasma albumin jamil urement (mass/volume)Ordered By: Mariah Aranda on 12-25-2022 Albumin [Mass/Vol] 3.5 g/dL 3.2-5.0 [facility] Serum or plasma albumin/glob ulin mass ratioOrdered By: Mariah Aranda on 12-25-2022 Albumin/Globulin [Mass ratio] 1.0 {ratio} 0.9-2.4 [facility] Serum or plasma calcium jamil urement (mass/volume)Ordered By: Mariah Aranda on 12-25-2022 Calcium [Mass/Vol] 9.1 mg/dL 8.5-10.1 [facility] Serum or plasma creatinine m easurement (mass/volume)Ordered By: Mariah Aranda on 12-25-2022 Creatinine [Mass/Vol] 0.83 mg/dL 0.55-1.02 [facility] Comment on above: The validity of the calculated GFR & GFRAA in patients over 70 years has not been determined. Clinical correlation is essential. Serum or plasma urea nitroge n measurement (mass/volume)Ordered By: Mariah Aranda on 12-25-2022 Urea nitrogen [Mass/Vol] 12 mg/dL 7-18 [facility] Thin prep Papanicolaou smear with manual screeningOrdered By: Mariah Aranda on 12-25-2022 Thin prep Papanicolaou smear with manual screening 13 U/L 15-37 [facility] Thin prep Papanicolaou smear with manual screening 4 5-15 [facility] Urine phencyclidine (PCP) de tectionOrdered By: Mariah Aranda on 12-25-2022 Phencyclidine Ql (U) Negative < 25 ng/mL [facility] Absolute lymphocyte countOrd ered By: Dr. Aranda on 09-28-2022 Lymphocytes Auto (Unsp spec) [#/Vol] 2.28 10*3/uL 0.83-4.51 [facility] Basophil percentageOrdered B y: Dr. Aranda on 09-28-2022 Basophils/100 WBC (Bld) 0.9 % 0-1 [facility] Bilirubin [Mass/Vol] 0.40 mg/dL 0.20-1.00 [facility] Comment on above: For patients on eltr ombopag therapy, use of Dimension Emblem TBIL is not recommended. Chloride [Moles/Vol] 106 mmol/L 98-107 [facility] Cholesterol [Mass/Vol] 250 mg/dL <200 [facility] Comment on above: <200 mg/dL Desirable 200-240 mg/dL Borderline >240 mg/dL High Risk Eosinophils/100 WBC (Bld) 1.9 % 0-5 [facility] Glucose [Mass/Vol] 90 mg/dL 74-106 [facility] Neutrophils (Bld) [#/Vol] 4.8 10*3/uL 2.0-7.7 [facility] Neutrophils/100 WBC (Bld) 61.7 % 47-70 [facility] Potassium [Moles/Vol] 4.1 mmol/L 3.5-5.1 [facility] Protein [Mass/Vol] 7.4 g/dL 6.4-8.2 [facility] Sodium [Moles/Vol] 135 mmol/L 136-145 [facility] Triglyceride [Mass/Vol] 162 mg/dL <199 [facility] Comment on above: The drugs N-Acetylcy steine and Metamizole may falsely depress this assay.Serum Triglycerides Reference Interval Normal <150 mg/dL Borderline high 150 - 199 mg/dL High 200 - 499 mg/dL Very High > or = 500 mg/dL WBC (Bld) [#/Vol] 7.8 10*3/uL 4.4-11.0 [facility] Blood erythrocytes count (nu mber/volume)Ordered By: Dr. Aranda on 09-28-2022 RBC (Bld) [#/Vol] 4.58 10*6/uL 4.2-5.4 [facility] Blood hemoglobin measurement (mass/volume)Ordered By: Dr. Aranda on 09-28-2022 Hemoglobin (Bld) [Mass/Vol] 13.3 g/dL 12.0-15.0 [facility] Blood lymphocytes/100 leukoc ytesOrdered By: Dr. Aranda on 09-28-2022 Lymphocytes/100 WBC (Bld) 29.2 % 19-41 [facility] Blood monocytes/100 leukocyt esOrdered By: Dr. Aranda on 09-28-2022 Monocytes/100 WBC (Bld) 6.0 % 0-10 [facility] Blood platelet mean volumeOr dered By: Dr. Aranda on 09-28-2022 Platelet mean volume (Bld) [Entitic vol] 10.3 fL 6.2-12.0 [facility] Determination of erythrocyte mean corpuscular volume (MCV)Ordered By: Dr. Aranda on 09-28-2022 MCV (RBC) [Entitic vol] 89.7 fL 81-99 [facility] Hematocrit Auto (Bld) [Volum e fraction]Ordered By: Dr. Aranda on 09-28-2022 Hematocrit (Bld) [Volume fraction] 41.1 % 37-47 [facility] - Chemistry and C hemistry - challengeOrdered By: Dr. Aranda on 09-28-2022 ALP [Catalytic activity/Vol] 74 U/L 45-117 [facility] ALT [Catalytic activity/Vol] 45 U/L 13-56 [facility] CO2 [Moles/Vol] 25.0 mmol/L 21.0-32.0 [facility] Globulin (S) [Mass/Vol] 3.7 g/dL 2.2-4.2 [facility] Urea nitrogen/Creatinine [Mass ratio] 19.4 mg/mg 10-20 [facility] Laboratory - Hematology and Cell countsOrdered By: Dr. Aranda on 09-28-2022 Erythrocyte distribution width (RBC) [Entitic vol] 49.1 fL 35.1-43.9 [facility] Erythrocyte distribution width (RBC) [Ratio] 14.9 % 11.6-14.6 [facility] Immature granulocytes/100 WBC (Bld) 0.300 % 0.0-0.9 [facility] Comment on above: IG% - Immature Granu locytes (promyelocytes, myelocytes and metamyelocytes) > 1% indicates that a LEFT SHIFT is Present. MCH (RBC) [Entitic mass] 29.0 pg 27.0-32.0 [facility] Nucleated RBC/100 WBC (Bld) [Ratio] 0 % 0-5 [facility] MCHC Auto (RBC) [Mass/Vol]Or dered By: Dr. Aranda on 09-28-2022 MCHC (RBC) [Mass/Vol] 32.4 g/dL 32-36 [facility] No Panel InformationOrdered By: Dr. Aranda on 09-28-2022 Estimated GFR (MDRD) Amer 114 mL/min >60 [facility] Comment on above: GFR Calc Estimated GFR (MDRD) Non-Af Amer 94 mL/min >60 [facility] Comment on above: Non- GFR Calc Platelets bldOrdered By: Dr. Aranda on 09-28-2022 Platelets (Bld) [#/Vol] 332 10*3/uL 150-450 [facility] Serum or plasma albumin jamil urement (mass/volume)Ordered By: Dr. Aranda on 09-28-2022 Albumin [Mass/Vol] 3.7 g/dL 3.2-5.0 [facility] Serum or plasma albumin/glob ulin mass ratioOrdered By: Dr. Aranda on 09-28-2022 Albumin/Globulin [Mass ratio] 1.0 {ratio} 0.9-2.4 [facility] Serum or plasma calcium jamil urement (mass/volume)Ordered By: Dr. Aranda on 09-28-2022 Calcium [Mass/Vol] 9.3 mg/dL 8.5-10.1 [facility] Serum or plasma cholesterol in HDL measurement (mass/volume)Ordered By: Dr. Aranda on 09-28-2022 Cholesterol in HDL [Mass/Vol] 56 mg/dL >40 [facility] Comment on above: The drugs N-Acetylcy steine and Metamizole may falsely depress this assay. Reference Range HDL <40 mg/dL Low HDL Cholesterol HDL >or= 60 mg/dL High HDL Cholesterol Serum or plasma cholesterol in VLDL measurement (mass/volume)Ordered By: Dr. Aranda on 09-28-2022 Cholesterol in VLDL [Mass/Vol] 32 mg/dL 5-40 [facility] Serum or plasma creatinine m easurement (mass/volume)Ordered By: Dr. Aranda on 09-28-2022 Creatinine [Mass/Vol] 0.72 mg/dL 0.55-1.02 [facility] Comment on above: The validity of the calculated GFR & GFRAA in patients over 70 years has not been determined. Clinical correlation is essential. Serum or plasma low density lipoprotein (LDL) cholesterol measurement (mass/volume)Ordered By: Dr. Aranda on 09-28-2022 Cholesterol in LDL [Mass/Vol] 162 mg/dL 0-130 [facility] Serum or plasma urea nitroge n measurement (mass/volume)Ordered By: Dr. Aranda on 09-28-2022 Urea nitrogen [Mass/Vol] 14 mg/dL 7-18 [facility] Thin prep Papanicolaou smear with manual screeningOrdered By: Dr. Aranda on 09-28-2022 Thin prep Papanicolaou smear with manual screening 74 U/L 15-37 [facility] Thin prep Papanicolaou smear with manual screening 4 5-15 [facility] Basophil percentageon 2021 Chloride [Moles/Vol] 102 mmol/L 98-107 [facility] Work Phone: Glucose [Mass/Vol] 79 mg/dL 74-106 [facility] Work Phone: Potassium [Moles/Vol] 3.9 mmol/L 3.5-5.1 [facility] Work Phone: Sodium [Moles/Vol] 137 mmol/L 136-145 [facility] Work Phone: Laboratory - Chemistry and C hemistry - challengeon 02-01-2022 CO2 [Moles/Vol] 29.0 mmol/L 21.0-32.0 [facility] Work Phone: Urea nitrogen/Creatinine [Mass ratio] 16.1 mg/mg 10-20 [facility] Work Phone: No Panel Informationon 02-01 Estimated GFR (MDRD) Amer 110 mL/min >60 [facility] Work Phone: Comment on above: GFR Calc Estimated GFR (MDRD) Non-Af Amer 91 mL/min >60 [facility] Work Phone: Comment on above: Non- GFR Calc Serum or plasma calcium jamil urement (mass/volume)on 02-01-2022 Calcium [Mass/Vol] 9.5 mg/dL 8.5-10.1 [facility] Work Phone: Serum or plasma creatinine m easurement (mass/volume)on 02-01-2022 Creatinine [Mass/Vol] 0.75 mg/dL 0.55-1.02 [facility] Work Phone: Comment on above: The validity of the calculated GFR & GFRAA in patients over 70 years has not been determined. Clinical correlation is essential. Serum or plasma urea nitroge n measurement (mass/volume)on 02-01-2022 Urea nitrogen [Mass/Vol] 12 mg/dL 7-18 [facility] Work Phone: Thin prep Papanicolaou smear with manual screeningon 02-01-2022 Thin prep Papanicolaou smear with manual screening 6 5-15 [facility] Work Phone: Whole blood hemoglobin A1c/t otal hemoglobin ratio (mass fraction)on 02-01-2022 HbA1c (Bld) [Mass fraction] 5.5 % 3.8-5.6 [facility] Work Phone: Comment on above: Normal < 5.7 % Predi abetic 5.7 - 6.4 % Diabetic >or= 6.5 % Please note range changes. Laboratory - Chemistry and C hemistry - challengeon 11-07-2021 Free T4 [Mass/Vol] 0.89 ng/dL 0.76-1.46 [facility] Work Phone: No Panel Informationon 11-07 Thyroid Stimulating Hormone (TSH) 1.49 uIU/mL 0.358-3.74 [facility] Work Phone: Office Visit: hormone therap y follow upon 02-21-2017 Documentation of current medications (procedure) Done Invalid Interpretation Code [facility] Fall risk assessment No Invalid Interpretation Code [facility] Tobacco use CPHS Current every day smoker Invalid Interpretation Code [facility] Clinical Lists Update: Prelo reimbursement spec 02-16-2017 Tobacco smoking status ARIS Never Invalid Interpretation Code [facility] Work Phone: Tobacco smoking status ARIS Current every day smoker [facility] Work Phone: Vital Signs Date Time Vital Sign Value Performing Clinician Facility 02-09-2025 07:33-0400 Body height 165.[address] Mariah Aranda MD Work Phone: [facility] 02-09-2025 07:33-0400 Body mass index (BMI) [Ratio] 47 kg/m2 Dr. Mariah Aranda MD Work Phone: [facility] 02-09-2025 07:33-0400 Body temperature 97.3 [degF] Dr. Mariah Aranda MD Work Phone: [facility] 02-09-2025 07:33-0400 Body weight 128.[address] Mariah Aranda MD Work Phone: [facility] 02-09-2025 07:33-0400 Diastolic blood pressure 76 mm[Hg] Dr. Mariah Aranda MD Work Phone: [facility] 02-09-2025 07:33-0400 Heart rate 98 /min Dr. Mariah Aranda MD Work Phone: [facility] 02-09-2025 07:33-0400 Respiratory rate 16 /min Dr. Mariah Aranda MD Work Phone: [facility] 02-09-2025 07:33-0400 SaO2% (BldA) [Mass fraction] 99 % Dr. Mariah Aranda MD Work Phone: [facility] 02-09-2025 07:33-0400 Systolic blood pressure 118 mm[Hg] Dr. Mariah Aranda MD Work Phone: [facility] 01-17-2025 08:54-0400 Body height 165.[address] Mariah Aranda MD Work Phone: [facility] 01-17-2025 08:54-0400 Body mass index (BMI) [Ratio] 47.4 kg/m2 Dr. Mariah Aranda MD Work Phone: [facility] 01-17-2025 08:54-0400 Body temperature 98.6 [degF] Dr. Mariah Aranda MD Work Phone: [facility] 01-17-2025 08:54-0400 Body weight 129.[address] Mariah Aranda MD Work Phone: [facility] 01-17-2025 08:54-0400 Diastolic blood pressure 88 mm[Hg] Dr. Mariah Aranda MD Work Phone: [facility] 01-17-2025 08:54-0400 Heart rate 83 /min Dr. Mariah Aranda MD Work Phone: [facility] 01-17-2025 08:54-0400 Respiratory rate 18 /min Dr. Mariah Aranda MD Work Phone: [facility] 01-17-2025 08:54-0400 SaO2% (BldA) [Mass fraction] 97 % Dr. Mariah Aranda MD Work Phone: [facility] 01-17-2025 08:54-0400 Systolic blood pressure 126 mm[Hg] Dr. Mariah Aranda MD Work Phone: [facility] 09-25-2024 17:48-0400 Body height 165.[address] Mariah Aranda MD Work Phone: [facility] 09-25-2024 17:48-0400 Body mass index (BMI) [Ratio] 46.2 kg/m2 Dr. Mariah Aranda MD Work Phone: [facility] 09-25-2024 17:48-0400 Body temperature 96.9 [degF] Dr. Mariah Aranda MD Work Phone: [facility] 09-25-2024 17:48-0400 Body weight 126.[address] Mariah Aranda MD Work Phone: [facility] 09-25-2024 17:48-0400 Diastolic blood pressure 70 mm[Hg] Dr. Mariah Aranda MD Work Phone: [facility] 09-25-2024 17:48-0400 Heart rate 69 /min Dr. Mariah Aranda MD Work Phone: [facility] 09-25-2024 17:48-0400 Respiratory rate 16 /min Dr. Mariah Aranda MD Work Phone: [facility] 09-25-2024 17:48-0400 SaO2% (BldA) [Mass fraction] 99 % Dr. Mariah Aranda MD Work Phone: [facility] 09-25-2024 17:48-0400 Systolic blood pressure 118 mm[Hg] Dr. Mariah Aranda MD Work Phone: [facility] 07-02-2023 08:11-0500 Body height 165.[address] Mariah Aranda Work Phone: [facility] 07-02-2023 08:11-0500 Body mass index (BMI) [Ratio] 44.2 kg/m2 Dr. Mariah Aranda Work Phone: [facility] 07-02-2023 08:11-0500 Body temperature 98.2 [degF] Dr. Mariah Aranda Work Phone: [facility] 07-02-2023 08:11-0500 Body weight 120.[address] Mariah Aranda Work Phone: [facility] 07-02-2023 08:11-0500 Diastolic blood pressure 80 mm[Hg] Dr. Mariah Aranda Work Phone: [facility] 07-02-2023 08:11-0500 Heart rate 90 /min Dr. Mariah Aranda Work Phone: [facility] 07-02-2023 08:11-0500 Respiratory rate 14 /min Dr. Mariah Aranda Work Phone: [facility] 07-02-2023 08:11-0500 SaO2% (BldA) [Mass fraction] 99 % Dr. Mariah Aranda Work Phone: [facility] 07-02-2023 08:11-0500 Systolic blood pressure 116 mm[Hg] Dr. Mariah Aranda Work Phone: [facility] 03-28-2023 17:46-0400 Body height 165.[address] Mariah Aranda Work Phone: [facility] 03-28-2023 17:46-0400 Body mass index (BMI) [Ratio] 42.5 kg/m2 Dr. Mariah Aranda Work Phone: [facility] 03-28-2023 17:46-0400 Body temperature 97.7 [degF] Dr. Mariah Aranda Work Phone: [facility] 03-28-2023 17:46-0400 Body weight 116.[address] Mariah Aranda Work Phone: [facility] 03-28-2023 17:46-0400 Diastolic blood pressure 92 mm[Hg] Dr. Mariah Aranda Work Phone: [facility] 03-28-2023 17:46-0400 Heart rate 88 /min Dr. Mariah Aranda Work Phone: [facility] 03-28-2023 17:46-0400 Respiratory rate 18 /min Dr. Mariah Aranda Work Phone: [facility] 03-28-2023 17:46-0400 SaO2% (BldA) [Mass fraction] 99 % Dr. Mariah Aranda Work Phone: [facility] 03-28-2023 17:46-0400 Systolic blood pressure 122 mm[Hg] Dr. Mariah Aranda Work Phone: [facility] 02-14-2023 21:00-0400 Body temperature 97.5 [degF] Dr. Mariah Aranda Work Phone: [facility] 02-14-2023 21:00-0400 Diastolic blood pressure 68 mm[Hg] Dr. Mariah Aranda Work Phone: [facility] 02-14-2023 21:00-0400 Heart rate 66 /min Dr. Mariah Aranda Work Phone: [facility] 02-14-2023 21:00-0400 Respiratory rate 14 /min Dr. Mariah Aranda Work Phone: [facility] 02-14-2023 21:00-0400 SaO2% (BldA) [Mass fraction] 100 % Dr. Mariah Aranda Work Phone: [facility] 02-14-2023 21:00-0400 Systolic blood pressure 138 mm[Hg] Dr. Mariah Aranda Work Phone: [facility] 02-14-2023 18:51-0400 Body height 165.[address] Mariah Aranda Work Phone: [facility] 02-14-2023 18:51-0400 Body mass index (BMI) [Ratio] 43.5 kg/m2 Dr. Mariah Aranda Work Phone: [facility] 02-14-2023 18:51-0400 Body weight 118.[address] Mariah Aranda Work Phone: [facility] 12-25-2022 08:04-0400 Body height 165.[address] Mariah Aranda Work Phone: [facility] 12-25-2022 08:04-0400 Body mass index (BMI) [Ratio] 42.8 kg/m2 Dr. Mariah Aranda Work Phone: [facility] 12-25-2022 08:04-0400 Body temperature 95.8 [degF] Dr. Mariah Aranda Work Phone: [facility] 12-25-2022 08:04-0400 Body weight 116.[address] Mariah Aranda Work Phone: [facility] 12-25-2022 08:04-0400 Diastolic blood pressure 86 mm[Hg] Dr. Mariah Aranda Work Phone: [facility] 12-25-2022 08:04-0400 Heart rate 81 /min Dr. Mariah Aranda Work Phone: [facility] 12-25-2022 08:04-0400 Respiratory rate 18 /min Dr. Mariah Aranda Work Phone: [facility] 12-25-2022 08:04-0400 SaO2% (BldA) [Mass fraction] 95 % Dr. Mariah Aranda Work Phone: [facility] 12-25-2022 08:04-0400 Systolic blood pressure 136 mm[Hg] Dr. Mariah Aranda Work Phone: [facility] 09-20-2022 08:56-0400 Body height 165.[address] Mariah Aranda Work Phone: [facility] 09-20-2022 08:56-0400 Body mass index (BMI) [Ratio] 43.2 kg/m2 Dr. Mariah Aranda Work Phone: [facility] 09-20-2022 08:56-0400 Body temperature 96.9 [degF] Dr. Mariah Aranda Work Phone: [facility] 09-20-2022 08:56-0400 Body weight 117.[address] Mariah Aranda Work Phone: [facility] 09-20-2022 08:56-0400 Diastolic blood pressure 78 mm[Hg] Dr. Mraiah Aranda Work Phone: [facility] 09-20-2022 08:56-0400 Heart rate 87 /min Dr. Mariah Aranda Work Phone: [facility] 09-20-2022 08:56-0400 Respiratory rate 16 /min Dr. Mariah Aranda Work Phone: [facility] 09-20-2022 08:56-0400 SaO2% (BldA) [Mass fraction] 97 % Dr. Mariah Aranda Work Phone: [facility] 09-20-2022 08:56-0400 Systolic blood pressure 126 mm[Hg] Dr. Mariah Aranda Work Phone: [facility] 06-13-2022 08:27-0500 Body height 165.[address] Mariah Aranda Work Phone: [facility] 06-13-2022 08:27-0500 Body mass index (BMI) [Ratio] 44.4 kg/m2 Dr. Mariah Aranda Work Phone: [facility] 06-13-2022 08:27-0500 Body temperature 97 [degF] Dr. Mariah Aranda Work Phone: [facility] 06-13-2022 08:27-0500 Body weight 121.[address] Mariah Aranda Work Phone: [facility] 06-13-2022 08:27-0500 Diastolic blood pressure 82 mm[Hg] Dr. Mariah Aranda Work Phone: [facility] 06-13-2022 08:27-0500 Heart rate 94 /min Dr. Mariah Aranda Work Phone: [facility] 06-13-2022 08:27-0500 Respiratory rate 16 /min Dr. Mariah Aranda Work Phone: [facility] 06-13-2022 08:27-0500 SaO2% (BldA) [Mass fraction] 99 % Dr. Mariah Aranda Work Phone: [facility] 06-13-2022 08:27-0500 Systolic blood pressure 122 mm[Hg] Dr. Mariah Aranda Work Phone: [facility] 05-15-2022 08:33-0500 Body height 165.[address] Mariah Aranda Work Phone: [facility] Work Phone: 05-15-2022 08:33-0500 Body mass index (BMI) [Ratio] 43.6 kg/m2 Dr. Mariah Aranda Work Phone: [facility] 05-15-2022 08:33-0500 Body temperature 96 [degF] Dr. Mariah Aranda Work Phone: [facility] 05-15-2022 08:33-0500 Body weight 118.[address] Mariah Aranda Work Phone: [facility] 05-15-2022 08:33-0500 Diastolic blood pressure 78 mm[Hg] Dr. Mariah Aranda Work Phone: [facility] 05-15-2022 08:33-0500 Heart rate 88 /min Dr. Mariah Aranda Work Phone: [facility] 05-15-2022 08:33-0500 Respiratory rate 16 /min Dr. Mariah Aranda Work Phone: [facility] 05-15-2022 08:33-0500 SaO2% (BldA) [Mass fraction] 98 % Dr. Mariah Aranda Work Phone: [facility] 05-15-2022 08:33-0500 Systolic blood pressure 126 mm[Hg] Dr. Mariah Aranda Work Phone: [facility] 04-13-2022 15:02-0400 Body height 165.[address] Mariah Aranda Work Phone: [facility] Work Phone: 04-13-2022 14:56-0400 Body mass index (BMI) [Ratio] 45.3 kg/m2 Dr. Mariah Aranda Work Phone: [facility] 04-13-2022 14:56-0400 Body weight 119.[address] Mariah Aranda Work Phone: [facility] 04-13-2022 14:56-0400 Diastolic blood pressure 78 mm[Hg] Dr. Mariah Aranda Work Phone: [facility] 04-13-2022 14:56-0400 Systolic blood pressure 126 mm[Hg] Dr. Mariah Aranda Work Phone: [facility] 02-01-2022 11:16-0400 Body height 165.[address] Mariah Aranda Work Phone: [facility] Work Phone: 02-01-2022 11:16-0400 Body mass index (BMI) [Ratio] 44.7 kg/m2 Dr. Mariah Aranda Work Phone: [facility] Work Phone: 02-01-2022 11:16-0400 Body temperature 96.8 [degF] Dr. Mariah Aranda Work Phone: [facility] Work Phone: 02-01-2022 11:16-0400 Body weight 122.[address] Mariah Aranda Work Phone: [facility] Work Phone: 02-01-2022 11:16-0400 Diastolic blood pressure 82 mm[Hg] Dr. Mariah Aranda Work Phone: [facility] Work Phone: 02-01-2022 11:16-0400 Heart rate 70 /min Dr. Mariah Aranda Work Phone: [facility] Work Phone: 02-01-2022 11:16-0400 Respiratory rate 16 /min Dr. Mariah Aranda Work Phone: [facility] Work Phone: 02-01-2022 11:16-0400 SaO2% (BldA) [Mass fraction] 99 % Dr. Mariah Aranda Work Phone: [facility] Work Phone: 02-01-2022 11:16-0400 Systolic blood pressure 122 mm[Hg] Dr. Mariah Aranda Work Phone: [facility] Work Phone: 11-02-2021 16:50-0400 Body temperature 97.2 [degF] Dr. Mariah Aranda Work Phone: [facility] Work Phone: 11-02-2021 16:50-0400 Diastolic blood pressure 86 mm[Hg] Dr. Mariah Aranda Work Phone: [facility] Work Phone: 11-02-2021 16:50-0400 Heart rate 90 /min Dr. Mariah Aranda Work Phone: [facility] Work Phone: 11-02-2021 16:50-0400 Respiratory rate 14 /min Dr. Mariah Aranda Work Phone: [facility] Work Phone: 11-02-2021 16:50-0400 SaO2% (BldA) [Mass fraction] 97 % Dr. Mariah Aranda Work Phone: [facility] Work Phone: 11-02-2021 16:50-0400 Systolic blood pressure 120 mm[Hg] Dr. Mariah Aranda Work Phone: [facility] Work Phone: 11-02-2021 16:50-0400 Body temperature 97.2 [degF] Dr. Mariah Aranda Work Phone: [facility] Work Phone: 11-02-2021 16:50-0400 Diastolic blood pressure 86 mm[Hg] Dr. Mariah Aranda Work Phone: [facility] Work Phone: 11-02-2021 16:50-0400 Heart rate 90 /min Dr. Mariah Aranda Work Phone: [facility] Work Phone: 11-02-2021 16:50-0400 Respiratory rate 14 /min Dr. Mariah Aranda Work Phone: [facility] Work Phone: 11-02-2021 16:50-0400 SaO2% (BldA) [Mass fraction] 97 % Dr. Mariah Aranda Work Phone: [facility] Work Phone: 11-02-2021 16:50-0400 Systolic blood pressure 120 mm[Hg] Dr. Mariah Aranda Work Phone: [facility] Work Phone: 10-12-2021 17:32-0400 Body mass index (BMI) [Ratio] 44.6 kg/m2 Dr. Mariah Aranda Work Phone: [facility] Work Phone: 10-12-2021 17:32-0400 Body temperature 97.2 [degF] Dr. Mariah Aranda Work Phone: [facility] Work Phone: 10-12-2021 17:32-0400 Body weight 121.[address] Mariah Aranda Work Phone: [facility] Work Phone: 10-12-2021 17:32-0400 Diastolic blood pressure 82 mm[Hg] Dr. Mariah Aranda Work Phone: [facility] Work Phone: 10-12-2021 17:32-0400 Heart rate 79 /min Dr. Mariah Aranda Work Phone: [facility] Work Phone: 10-12-2021 17:32-0400 Respiratory rate 18 /min Dr. Mariah Aranda Work Phone: [facility] Work Phone: 10-12-2021 17:32-0400 SaO2% (BldA) [Mass fraction] 99 % Dr. Mariah Aranda Work Phone: [facility] Work Phone: 10-12-2021 17:32-0400 Systolic blood pressure 122 mm[Hg] Dr. Mariah Aranda Work Phone: [facility] Work Phone: 10-12-2021 17:32-0400 Body height 165.[address] Mariah Aranda Work Phone: [facility] Work Phone: 10-12-2021 17:32-0400 Body mass index (BMI) [Ratio] 44.6 kg/m2 Dr. Mariah Aranda Work Phone: [facility] Work Phone: 10-12-2021 17:32-0400 Body temperature 97.2 [degF] Dr. Mariah Aranda Work Phone: [facility] Work Phone: 10-12-2021 17:32-0400 Body weight 121.[address] Mariah Aranda Work Phone: [facility] Work Phone: 10-12-2021 17:32-0400 Diastolic blood pressure 82 mm[Hg] Dr. Mariah Aranda Work Phone: [facility] Work Phone: 10-12-2021 17:32-0400 Heart rate 79 /min Dr. Mariah Aranda Work Phone: [facility] Work Phone: 10-12-2021 17:32-0400 Respiratory rate 18 /min Dr. Mariah Aranda Work Phone: [facility] Work Phone: 10-12-2021 17:32-0400 SaO2% (BldA) [Mass fraction] 99 % Dr. Mariah Aranda Work Phone: [facility] Work Phone: 10-12-2021 17:32-0400 Systolic blood pressure 122 mm[Hg] Dr. Mariah Aranda Work Phone: [facility] Work Phone: 02-21-2017 08:01-0400 BMI (Body Mass Index) 32.96 kg/m2 Bety Jama NP [facility] 02-21-2017 08:01-0400 Body Temperature 97.5 [degF] Bety Jama NP [facility] 02-21-2017 08:01-0400 BP Diastolic 82 mm[Hg] Bety Jama NP [facility] 02-21-2017 08:01-0400 BP Systolic 133 mm[Hg] Bety Jama NP [facility] 02-21-2017 08:01-0400 Height 167.64 cm Bety Jama NP [facility] 02-21-2017 08:01-0400 Pulse (Heart Rate) 84 /min Bety Jama NP [facility] 02-21-2017 08:01-0400 Respiratory Rate 16 /min Bety Jama NP [facility] 02-21-2017 08: Weight 92.63 kg Bety Hopewell [employer] [facility] 02-21-2017 08: Weight 92.62 kg Bety Hopewell [employer] [facility] Encounters Encounter Date Encounter Type Care Provider Facility Start: 02-09-2025 End: 02-09-[address] Mariah Aranda MD -[facility] Work Phone: Start: 02-09-2025 End: 02-09-[address] Mariah Aranda MD Work Phone: -[facility] Start: 01-17-2025 End: 01-17-2025 Patient encounter procedure Shawanda Corbett [employer]- -[facility] Work Phone: Start: 01-17-2025 End: 01-17-[address] Mariah Aranda MD Work Phone: -[facility] Start: 11-13-2024 End: 11-13-[address] Mariah Aranda MD Work Phone: [facility] Work Phone: Start: 11-13-2024 End: 11-13-[address] Mariah Aranda MD -Laboratory Specimen Work Phone: Start: 11-13-2024 End: 11-13-2024 [facility] Start: 09-25-2024 End: 09-25-[address] Mariah Aranda MD -[facility] Work Phone: Start: 09-25-2024 End: 09-25-20[facility] Start: 06-30-2024 End: 06-30[facility] Start: 06-19-2024 End: 06-19-2024 ambulatory [facility] Facility:[facility] Start: 02-13-2024 End: 02-13-2024 ambulatory Mariah Aranda Facility:[facility] Start: 07-02-2023 End: 07-02-[address] Mariah Aranda Work Phone: [facility] Work Phone: Start: 07-02-2023 End: 07-02-[address] Mariah Aranda Work Phone: [facility] Work Phone: Start: 05-18-2023 End: 05-18-[address] Mariah Aranda Work Phone: [facility] Work Phone: Start: 05-18-2023 End: 05-18-[address] Mariah Aranda Work Phone: [facility] Work Phone: Start: 03-28-2023 End: 03-28-[address] Mariah Aranda Work Phone: [facility] Internal [facility] Work Phone: Start: 02-14-2023 End: 02-14-2023 Emergency department patient visit Dr. Mariah Aranda Work Phone: [facility]-Emergency Department Work Phone: Start: 12-25-2022 End: 12-25-[address] Mariah Aranda Work Phone: [facility] Work Phone: Start: 12-25-2022 End: 12-25-[address] Mariah Aranda Work Phone: [facility] Internal Medicine Work Phone: Start: 09-28-2022 End: 09-28-[address] Mariah Aranda Work Phone: [facility] Work Phone: Start: 09-28-2022 End: 09-28-[address] Mariah Aranda Work Phone: [facility] Start: 09-20-2022 End: 09-20-[address] Mariah Aranda Work Phone: [facility] Internal Medicine Start: 07-05-2022 End: 07-05-[address] Mariah Aranda Work Phone: [facility] Work Phone: Start: 07-05-2022 End: 07-05-[address] Mariah Aranda Work Phone: [facility]-Pulmonary Services/Neurology Start: 06-13-2022 End: 06-13-[address] Mariah Aranda Work Phone: [facility] Internal Medicine Start: 05-15-2022 End: 05-15-[address] Mariah Aranda Work Phone: [facility] Work Phone: Start: 05-15-2022 End: 05-15-[address] Mariah Aranda Work Phone: [facility] Internal Medicine Start: 04-27-2022 End: 04-27-[address] Mariah Aranda Work Phone: [facility] Work Phone: Start: 04-27-2022 End: 04-27-[address] Mariah Aranda Work Phone: [facility]-Outpatient Breast Imaging Start: 04-13-2022 End: 04-13-[address] Mariah Aranda Work Phone: [facility] Women's Care Start: 02-01-2022 End: 02-01-[address] Mariah Aranda Work Phone: [facility] Work Phone: Start: 02-01-2022 End: 02-01-[address] Mariah Aranda Work Phone: [facility] Internal Medicine Start: 11-07-2021 End: 11-07-[address] Mariah Aranda Work Phone: [facility] Start: 11-02-2021 End: 11-02-[address] Mariah Aranda Work Phone: [facility] Internal Medicine Start: 10-12-2021 End: 10-12-[address] Mariah Aranda Work Phone: [facility] Internal Medicine Procedures Date Procedure Procedure Detail Performing Clinician Start: 11-13-[address] Satish Aranda MD Work Phone: Start: 11-13-2024 Urnls dip stick/tabl et reagent auto microscopy Dr. Mariah Aranda MD Work Phone: Start: 05-18-2023 Screening mammography Bailee Aranda Work Phone: Start: 02-14-2023 Plain chest X-ray Dr. Adelina Aranda Work Phone: Start: 02-14-2023 SARS-CoV-2 & FLU Ant igen (Rapid) Dr. Mariah Aranda Work Phone: Start: 05-15-2022 Plain x-ray of pelvi s and lower extremity Dr. Mariah Aranda Work Phone: Start: 11-28-2022 X-ray of lumbar spin e, two or three views Dr. Mariah Aranda Work Phone: Start: 04-27-2022 Screening mammography Bailee Aranda Work Phone: Start: 11-02-2021 Plain X-ray of toe Dr. Mariah Aranda Work Phone: Plan of Treatment Date Care Activity Detail Author Start: 02-14-2023 [facility] Start: 09-20-2022 Patient referral [facility] Work Phone: Start: 02-21-2017 End: 02-21-2017 Mammogram, screening Mammogram, Screening, both breasts [facility] Work Phone: Start: 02-21-2017 End: 02-21-2017 Appointment Appointment [facility] Work Phone: Start: 02-21-2017 End: 02-21-2017 Mammogram, screening Mammogram, Screening, both breasts [facility] CBC W Auto Different ial panel - Blood [facility] Comprehensive metabo lic 2000 panel - Serum or Plasma [facility] Lipid 1996 panel - S haydee or Plasma [facility] Patient Education Coronavirus Di sease 2019 (COVID-19): Caring for Yourself or Others COVID-19 and the Flu: What's the Difference? ED Viral Syndrome (Adult) [facility] Work Phone: Patient referral [facility] Work Phone: Urinalysis complete panel - Urine [facility] Payers Date Payer Category Payer Unknown [id number] 2024 Unknown [id number] 2024 Self-pay [id number] 2023 Unknown [id number] 2016 Unknown [id number] Unknown [id number] Unknown [id number] 2.16.8 [id number] Unknown [id number] 2.16.8 [id number] Unknown [id number] 2.16.8 [id number] Unknown [id number] 2.16.8 [id number] Unknown [id number] 2.16.8 [id number] Unknown [id number] 2.16.8 [id number] Unknown [id number] 2.16.8 [id number] Social History Date Type Detail Facility Start: 11-02-2021 End: 07-02-2023 Tobacco smoking status ARIS Unknown if ever smoked [facility] Start: 1980 Sex Assigned At Female [facility] Start: 2023 Tobacco smoking status NHIS Smokes tobacco daily (finding) [facility] NEGATED: Highlighted row [facility] Mental Status Date Assessment Result Facility 02-14-2023 Cognitive function Level Of Cons ciousness Awake;Alert;Appropriate;Follow s Commands [facility] Work Phone: Clinical Notes 01-07-2021 to 01-17-2025 Note Date & Type Note Facility 01-17-2025 Evaluation note Diagnosis Onset Date Resolution Bronchitis acute January 17 8:50am Nicotine dependence acute Augus t 2024 8:50am Wheezing acute January 17 8:50am [facility] Work Phone: 1(580) 253-574004-10-2025 Evaluation note* Diagnosis Onset Date Resolution Status Admit Date Anxiety and depression acute Ap 2024 5:38pm ADD (attention deficit disorder) chronic September 25, 2024 5:38pm Hypertension chronic September 25, 2024 5:38pm Pain of both breasts chronic Apri l 2024 5:38pm [facility] Work Phone: 1(430) 442-468308-30-2023 Discharge summary Author Jeancarlos Pedraza [facility] February 14, 2023 8:42pm Note Date/Time February 14, 2023 7: 18pm [facility] Medical Records Department [address] [place] [address] Emergency Department Summary 02/14/23 MR#: [id number] Acct: [id number] Name: SUNSHINE BENNETT Rep #:[id number] : 1980 42 From: Jeancarlos Pedraza MD PCP: Dr. Mariah Aranda MD Status:R EG ER Location: ED HPI History of Present Illness Chief Complaint: Sore Throat Narrative Narrative: 42-year-old female who denies significant past medical history presents with viral syndrome like symptoms. She states this morning she began having a headache. It progressed to a sore throat this afternoon. She felt feverish. She started develop myalgias and arthralgias and body aches in her arms and legs. She also has a nonproductive cough. She states her chest feels tight with mild shortness of breath. Out of all the symptoms she states the myalgias are the worst. She last took ibuprofen or Tylenol over 6 hours ago. She presents with a vast array of symptoms consistent with viral syndrome. [facility] Medical History ADD (attention deficit disorder) Anemia Anxiety and depression Dermatitis Endometriosis Gastrointestinal problem H/O emotional problems Headache History of migraine headaches Hypersomnolence IBS (irritable bowel syndrome) Iron deficiency Morbid obesity Obesity (BMI 30-39.9) JOSIANE (obstructive sleep apnea) RUQ pain Tobacco abuse Vitamin D deficiency Home Medications estradiol 2 mg tablet See Rx Instructions .Route .COMPLEX #90 tabs 03/06/22 [Rx Last Taken Unknown] alprazolam 0.25 mg tablet (Xanax) 0.25 mg PO DAILY PRN anxiety #10 tabs 03/15/22[Rx Last Taken Unknown] aripiprazole 5 mg tablet 7.5 mg (1.5 x 5 mg) PO DAILY #135 tabs 12/15/22 [Rx Last Taken Unknown] sertraline 100 mg tablet See Rx Instructions .Route .COMPLEX #180 tabs 01/09/23 [Rx Last Taken Unknown] gabapentin 300 mg capsule 300 mg PO TID #90 caps 01/17/23 [Rx Last Taken Unknown] dextroamphetamine-amphetamine 10 mg tablet (Adderall) 10 mg PO BID 30 days #60 tabs 01/29/23 [Rx Last Taken Unknown] Allergy/AdvReac Type Severity Reaction Status Date / Time amoxicillin Allergy Other Verified 02/14/23 18:51 Penicillins Allergy Hives Verified 02/14/23 18:51 Family History Father Diabetes Grandfather Cardiomyopathy Other Heart disease depression Surgical History History of total vaginal hysterectomy (TVH) Social History Smoking Status: Current every day smoker tobacco type: cigarettes alcohol intake: current alcohol intake frequency: holidays/special occasions only substance use type: does not use caffeine: Yes what type of physical activity do you participate in: walking frequency: 1-2 times per week seatbelt use: never do you feel safe at home: Yes additional social history: 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 HEENT: Positive sore throat. No neck pain. No loss of vision. No rhinorrhea. Cardiovascular: No chest pain. No palpitations. No pedal edema. Respiratory: Nonproductive cough, mild chest tightness and shortness of breath. Abdominal: No abdominal pain. No nausea. No vomiting. Genitourinary: No dysuria. No hematuria. Musculoskeletal: Multiple myalgias and arthralgias Neurologic: No headaches. No dizziness. No lightheadedness. Skin: No rash. No change in color. Psychiatric: No depression. No anxiety. EXAM Physical Exam Narrative Exam Narrative: Afebrile. Vital signs noted. HEENT: Normocephalic. Atraumatic. PERRL, EOMI. Neck soft and supple. No pointtenderness or step off. Mild nasal congestion. Airway patent. No meningismus. Mild pharyngeal erythema. No drooling or trismus. Cardiovascular: Regular rate and rhythm. No murmurs, rubs, or gallops appreciated. Respiratory: No tachypnea. Lungs clear to auscultation bilaterally. Gastrointestinal: Abdomen soft, nontender, with normoactive bowel sounds. No rebound or guarding. Neurological: Awake. Alert. Nonfocal, nonlateralizing. Skin: No rash. Normal color. No pallor. Musculoskeletal: No pedal edema. Full range of motion extremities. Const Vital Signs: 02/14/23 18:51 02/14/23 19:28 02/14/23 19:53 Temperature 97.3 F L 98.3 F Temperature Source Temporal Temporal Pulse Rate 97 97 Respiratory Rate 18 18 Respiratory Effort Normal Respiratory Pattern Normal Blood Pressure 138/88 H 142/73 H Blood Pressure Mean 104 96 Pulse Ox 100 96 Oxygen Delivery Method Room Air Room Air MDM MDM MDM Narrative Medical decision making narrative: Suspicion is high for viral syndrome, could be COVID or influenza. She was swabbed for COVID and influenza a and B. Her pulse ox is 100% on room air without evidence of hypoxia. Lower on the differential is pneumonia. Chest x-ray in 1 view will be obtained to help rule this out. She was administered Toradol 60 mg intramuscularly for her body aches and pains. I reviewed her chest x-ray in 1 view and see no evidence of consolidation or pneumothorax on myindependent interpretation. I reviewed the radiology report which confirms my independent interpretation. I reviewed her respiratory swabs/laboratory work and she is positive for COVID-19. At this point time, treatment be symptomatic. I offered to write her a prescription for an inhaler but she declined. She is not hypoxic and I do not feel that she requires Decadron. Treat will be symptomatic with ebhh-ecr-[id number] medications. She will isolate for 5 days and return to work if she is asymptomatic at that time. Otherwise she will follow-up with her primary care physician. I feel she can be discharged safely home with follow-up. Return instructions were reviewed. Disposition is discharged home in stable condition. Lab Data Attestation: I reviewed the patient's lab results. Lab results narrative: Respiratory swab positive for COVID-19. Radiography Diagnostic Testing: Clinical Impression(s) from Imaging Studies Chest X-Ray 02/14/23 19:13 IMPRESSION: Normal x-ray examination of the chest. Electronically Signed: Tim Kramer MD at 19:34 EDT , Discharge Plan Triage Chief Complaint: Sore Throat Other Complaint: General Illness Headache ED Provider: Jeancarlos Pedraza Dx/Rx/DC Orders Clinical Impression: COVID, Myalgia, Acute viral syndrome Instructions: Coronavirus Disease 2019 (COVID-19): Caring for Yourself or Others, COVID-19 and the Flu: What's the Difference?, ED Viral Syndrome (Adult) Prescriptions: No Action estradiol 2 mg tablet See Rx Instructions .ROUTE .COMPLEX Qty: 90 4RF Dose Instruction: take 1 tablet by mouth once daily Rx Instructions: take 1 tablet by mouth once daily alprazolam [Xanax] 0.25 mg tablet 0.25 mg PO DAILY PRN (Reason: anxiety) Qty: 10 1RF aripiprazole 5 mg tablet 7.5 mg PO DAILY Qty: 135 1RF sertraline 100 mg tablet See Rx Instructions .ROUTE .COMPLEX Qty: 180 3RF Dose Instruction: take 2 tablets by mouth once daily Rx Instructions: take 2 tablets by mouth once daily gabapentin 300 mg capsule 300 mg PO TID Qty: 90 1RF Rx Instructions: take 1 capsule by mouth three times a day dextroamphetamine-amphetamine [Adderall] 10 mg tablet 10 mg PO BID 30 Days Qty: 60 0RF Rx Instructions: administer doses at least 4-6 hours apart Stand Alone Forms: ED Work / School Excuse Primary Care Provider: Mariah Aranda Referrals: Mariah Aranda MD [Primary Care Provider] - 1 Week if not improving Activity Restrictions/Additional Instructions: You may return to work in 5 days if you are asymptomatic. Disposition Disposition: Home, Self Care What to do if you have Problems For any increased pain, shortness of breath, bleeding, nausea or vomiting, chestpain, or any unexpected problems, contact your Primary Care Provider. Call [facility] ([phone]) or report to the closest Emergency Room. Call 911 if necessary. 02/14/232041 <Electronically signed by Jeancarlos Pedraza MD> Cosigner Signature (if applicable): CC: Dr. Mariah Aranda MD ~ Signed [facility] Work Phone: 1(138) 330-436701-18-2023 Procedure [facility] 01-07-2021 NotePatient Outreach (INTMMN) SUNSHINE BENNETT ([id number]) 1980 F Date Time Provider Department 01/07/21 NELLY SALGADO INTMMN During your visit today, we recorded the following information about you: Allergies As of Date: 01/07/2021 Noted Allergy Reaction AMOXICILLIN 09/08/2005 4 - Hives Environmental [Other] 09/21/2011 16 - Unknown Comments: Lucio tree pollen PENICILLINS 09/08/2005 4 - Hives Date Reviewed: 10/15/2018 Reviewed by: Talita Alvarez LPN - Fully Assessed Visit Diagnosis:Encounter for screening mammogram for breast cancer [Z12.31] Order(s):[facility] SCREENING [[id number]] Order #: [id number] FUTURE Prescriptions as of 01/10/2021 - sertraline [...] pain, musculoskeletal [R07.89] 03/10/2018 Encounter Status:Closed by SARA MEEKS on 01/10/21[facility] Evaluation note* Diagnosis Onset Date Resolution Status JOSIANE (obstructive sleep apnea) acute 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 Hypertension chronic [facility] Work Phone: Evaluation note* Diagnosis Onset Date Resolution Status JOSIANE (obstructive sleep apnea) acute 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 Hypertension chronic Pain of left great toe nonea ctive ADD (attention deficit disorder) chronic 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 Dermatitis chronic Morbid obesity chronic Tobacco abuse chronic [facility] Work Phone: Evaluation note* Diagnosis Onset Date Resolution Status ADD (attention deficit disorder) chronic 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 Dermatitis chronic Morbid obesity chronic Tobacco abuse chronic Encounter for routine gynecological examination noneactive [facility] Work Phone: Evaluation note* Diagnosis Onset Date Resolution Status ADD (attention deficit disorder) chronic 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 Dermatitis chronic Morbid obesity chronic Tobacco abuse chronic Encounter for routine gynecological examination noneactive Right leg paresthesias nonea ctive Hip pain noneactive [facility] Work Phone: Evaluation note* Diagnosis Onset Date Resolution Status Encounter for routine gynecological examination noneactive Right leg paresthesias nonea ctive Hip pain noneactive ADD (attention deficit disorder) chronic 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 Morbid obesity chronic Tobacco abuse chronic Wheezing noneactive [facility] Work Phone: Evaluation note* Diagnosis Onset Date Resolution Status ADD (attention deficit disorder) chronic 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 Morbid obesity chronic Tobacco abuse chronic Wheezing noneactive ADD (attention deficit disorder) chronic Hyperlipidemia chronic Hypertension chronic Morbid obesity chronic [facility] Work Phone: Evaluation note* Diagnosis Onset Date Resolution Status ADD (attention deficit disorder) chronic Hyperlipidemia chronic Hypertension chronic Morbid obesity chronic ADD (attention deficit disorder) chronic Bipolar depression chronic Headache chronic Morbid obesity chronic [facility] Work Phone: Evaluation note* Diagnosis Onset Date Resolution Status ADD (attention deficit disorder) chronic Bipolar depression chronic Headache chronic Morbid obesity chronic [facility] Work Phone: Evaluation note* Diagnosis Onset Date Resolution Status Bipolar depression chronic Headache chronic Hypertension chronic OAB (overactive bladder) chr ic [facility] Work Phone: Evaluation note* Diagnosis Onset Date Resolution Status Bipolar depression chronic Headache chronic Hypertension chronic OAB (overactive bladder) chr onic ADD (attention deficit disorder) chronic Bipolar depression chronic Headache chronic OAB (overactive bladder) chr ic [facility] Work Phone: Hospital Discharge instructions Additional Instructions You may return to work in 5 days if you are asymptomatic.[facility] Work Phone: Hospital Discharge instructionsAmbulatory Orders* Nutrition Referral Location: None Selected [facility] Work Phone: Reason for referral (narrative)No reason for referral information availableWRiverside [facility] Work Phone: Summary Purpose Family History No Family History Records Found Relationship Condition Age at Onset Recorded Date/T connie Not Specified Cardiac disease Unknown Unknown father Diabetes mellitus Unknown grandfather Cardiomyopathy Unknown Advance Directives No Advanced Directives Records Found Advance Directive Response Recorded Date/ Time Living Will No December 25, 2018 6:00pm Power of Floor Tiling Professional No December 25 9 6:00pm Advance Directive Response Recorded Date/ Time Living Will No December 25, 2018 5:00pm Power of Floor Tiling Professional No December 25 9 5:00pm Advance Directive Response Recorded Date/ Time Living Will No February 14 3 7:28pm Power of Floor Tiling Professional No February 14, 2 023 7:28pm Advance Directive Response Recorded Date/ Time Living Will No February 14 3 6:28pm Power of Floor Tiling Professional No February 14, 2 023 6:28pm Chief Complaint and Reason for Visit Chief Complaint Admit Date 3 M FU September 25, 2024 5:3 8pm WHEEZING, COUGH January 17, 2025 8:5 0am Reason for Visit Admit Date Anxiety and depression September 25, 2024 5:38pm ADD (attention deficit disorder) September 162024 5:38pm Hypertension September 25, 2024 5:3 8pm Pain of both breasts September 25, 2024 5: 38pm Chief Complaint 3 M FU left great toe pain EORDER EORDER Reason for Visit JOSIANE (obstructive sle ep apnea) Depression with anxiety Hypertension Chief Complaint 3 M FU left great toe pain EORDER EORDER 3 M FU Reason for Visit JOSIANE (obstructive sle ep apnea) Depression with anxiety Hypertension Pain of left great toe ADD (attention deficit disorder) Depression with anxiety Dermatitis Morbid obesity Tobacco abuse Chief Complaint 3 M FU 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 Reason for Visit ADD (attention defic it disorder) Depression with anxiety Dermatitis Morbid obesity Tobacco abuse Encounter for routine gynecological examination Chief Complaint 3 M FU 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 LEG HIP PAIN EORDER Reason for Visit ADD (attention defic it disorder) Depression with anxiety Dermatitis Morbid obesity Tobacco abuse Encounter for routine gynecological examination Right leg paresthesias Hip pain Chief Complaint 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 LEG HIP PAIN EORDER 3 M FU RIGHT LEG PARESTHESIAS Reason for Visit Encounter for routin e gynecological examination Right leg paresthesias Hip pain ADD (attention deficit disorder) Depression with anxiety Morbid obesity Tobacco abuse Wheezing Chief Complaint 3 M FU RIGHT LEG PARESTHESIAS 3 M FU EORDER Reason for Visit ADD (attention defic it disorder) Depression with anxiety Morbid obesity Tobacco abuse Wheezing ADD (attention deficit disorder) Hyperlipidemia Hypertension Morbid obesity Chief Complaint 3 M FU EORDER 3 m fu Reason for Visit ADD (attention defic it disorder) Hyperlipidemia Hypertension Morbid obesity ADD (attention deficit disorder) Bipolar depression Headache Morbid obesity Chief Complaint 3 m fu sore throat, headache, body aches Reason for Visit ADD (attention defic it disorder) Bipolar depression Headache Morbid obesity Chief Complaint sore throat, headach e, body aches 3 M FU SCREENING Reason for Visit Bipolar depression Headache Hypertension OAB (overactive bladder) Chief Complaint 3 M FU SCREENING 3 M FU Reason for Visit Bipolar depression Headache Hypertension OAB (overactive bladder) ADD (attention deficit disorder) Bipolar depression Headache OAB (overactive bladder) Chief Complaint Admit Date 3 M FU September 25, 2024 5:3 8pm Chief Complaint Admit Date WHEEZING, COUGH January 17, 2025 8:5 0am 3 M FU February 09, 2025 7: 26am Reason for Visit Admit Date Bronchitis January 17, 2025 8:5 0am Nicotine dependence January 17, 2025 8:5 0am Wheezing January 17, 2025 8:5 0am Additional Source Comments INFORMATION SOURCE (unrecogn ized section and content) DATE CREATED AUTHOR 08/02/2021 [facility] DATE CREATED AUTHOR AUTHOR'S ORGANIZ ATION 02/12/2025 [facility] Goals (unrecognized section and content) Goals may be documented in a n alternate sectionGoals may be documented in an alternate sectionGoals may be documented in an alternate sectionGoals may be documented in an alternate sectionGoals may be documented in an alternate sectionGoals may be documented in an alternate sectionGoals may be documented in an alternate sectionGoals may be documented in an alternate sectionGoals may be documented in an alternate sectionGoals may be documented in an alternate sectionGoals may be documented in an alternate sectionGoals may be documented in an alternate sectionGoals may be documented in an alternate sectionGoals may be documented in an alternate section Care Teams (unrecognized sec tion and content) Team Status: Active Member Role Status Dates Dr. Mariah Aranda MD Family Provider Active Dr. Mariah Aranda MD Primary Care Provider Active Team Status: Inactive Member Role Status Dates Dr. Mariah Aranda MD Primary Care Provider, Refer ring Provider Active KAROLINE Lorenzo Attending Provider Active Team Status: Inactive Member Role Status Dates Dr. Mariah Aranda MD Primary Care Provider, Refer ring Provider Active Bety Jama [employer], [employer]BER-C Attending Provider Active Team Status: Inactive Member Role Status Dates Dr. Mariah Aranda MD Primary Care Provider Active Bety Jama [employer], [employer]BER-C Attending Provider Active Team Status: Inactive Member Role Status Dates Dr. Mariah Aranda MD Primary Care Provider Active KAROLINE Lorenzo Attending Provider, Referring Pro vider Active Team Status: Inactive Member Role Status Dates Dr. Mariah Aranda MD Primary Care Provider Active KAROLINE Lorenzo Attending Provider Active Team Status: Inactive Member Role Status Dates Dr. Mariah Aranda MD Primary Care P rovider, Attending Provider, Referring Provider Active Team Status: Inactive Member Role Status Dates Dr. Mariah Aranda MD Primary Care Provider Active Jeancarlos Pedrzaa MD Emergency Provider Active Team Status: Inactive Member Role Status Dates Dr. Mariah Aranda MD Primary Care Provider Active Bety Jama [employer], [employer]BER-C Attending Provider, Referring Provider Active Team Status: Inactive Member Role Status Dates Dr. Mariah Aranda MD Primary Care Provider Active Jeancarlos Pedraza MD Attending Provider, Emergency Provid er Active Team Status: Inactive Member Role Status Dates Dr. Mariah Aranda MD Primary Care Provider Active Start: September 25, 2024 End: September 25, 2024 Dr. Mariah Aranda MD Attending Provider Active Start: September 25, 2024 End: September 25, 2024 Dr. Mariah Aranda MD Referring Provider Active Start: September 25, 2024 End: September 25, 2024 Team Status: Inactive Member Role Status Dates Dr. Mariah Aranda MD Primary Care Provider Active Start: November 13, 2024 End: November 13, 2024 Dr. Mariah Aranda MD Attending Provider Active Start: November 13, 2024 End: November 13, 2024 Dr. Mariah Aranda MD Referring Provider Active Start: November 13, 2024 End: November 13, 2024 Team Status: Active Member Role/Relationship Status Dates Dr. Mariah Aranda MD Family Provider Active Dr. Mariah Aranda MD Primary Care Provider Active Team Status: Inactive Member Role/Relationship Status Dates Dr. Mariah Aranda MD Primary Care Provider Active Start: September 25, 2024 End: September 25, 2024 Dr. Mariah Aranda MD Attending Provider Active Start: September 25, 2024 End: September 25, 2024 Dr. Mariah Aranda MD Referring Provider Active Start: September 25, 2024 End: September 25, 2024 Team Status: Inactive Member Role/Relationship Status Dates Dr. Mariah Aranda MD Primary Care Provider Active Start: November 13, 2024 End: November 13, 2024 Dr. Mariah Aranda MD Attending Provider Active Start: November 13, 2024 End: November 13, 2024 Dr. Mariah Aranda MD Referring Provider Active Start: November 13, 2024 End: November 13, 2024 Team Status: Inactive Member Role/Relationship Status Dates Dr. Mariah Aranda MD Primary Care Provider Active Start: January 17, 2025 End: January 17, 2025 Dr. Mariah Aranda MD Referring Provider Active Start: January 17, 2025 End: January 17, 2025 LUIGI RangelC Attending Provider Active Start: January 17, 2025 End: January 17, 2025 Team Status: Inactive Member Role/Relationship Status Dates Dr. Mariah Aranda MD Primary Care Provider Active Start: November 13, 2024 End: November 13, 2024 Dr. Mariah Aranda MD Attending Provider Active Start: November 13, 2024 End: November 13, 2024 Dr. Mariah Aranda MD Referring Provider Active Start: November 13, 2024 End: November 13, 2024 Team Status: Inactive Member Role/Relationship Status Dates Dr. Mariah Aranda MD Primary Care Provider Active Start: January 17, 2025 End: January 17, 2025 Dr. Mariah Aranda MD Referring Provider Active Start: January 17, 2025 End: January 17, 2025 Shawanda Corbett NP-C Attending Provider Active Start: January 17, 2025 End: January 17, 2025 Team Status: Inactive Member Role/Relationship Status Dates Dr. Mariah Aranda MD Primary Care Provider Active Start: February 09, 2025 End: February 09, 2025 Dr. Mariah Aranda MD Attending Provider Active Start: February 09, 2025 End: February 09, 2025 Dr. Mariah Aranda MD Referring Provider Active Start: February 09, 2025 End: February 09, 2025 FOR RECORDS PERTAINING TO PATIENTS WHO ARE [...] BE BASED ON THE PRIMARY CLINICAL RECORDS. [facility] [place], [facility]. provides no warranty or guarantee of the accuracy or completeness of information in this document.
[2025-05-26 11:02] LABS: Hematocrit 41.6 % (37-47); Hemoglobin 13.6 g/dL (12.0-15.0); Immature Granulocytes Count 0.010 X10^3/uL (0.0-0.0); Mean Corp Hgb Conc 32.7 g/dL (32-36); Mean Corpuscular Volume 90.6 fL (81-99); Mean Platelet Vol. 10.0 fl (6.2-12.0); NRBC Flagged by Analyzer 0 % (0-5); Platelet Count 361 K/mm3 (150-450); RBC Distribution Width CV 14.2 % (11.6-14.6); RBC Distribution Width SD 47.1 fl (35.1-43.9); Red Blood Count 4.59 M/mm3 (4.2-5.4); White Blood Count 6.7 K/mm3 (4.4-11.0)
[2025-05-26 11:22] LABS: AST(SGOT) 16 U/L (<=31); Alanine Aminotransfer ALT/SGPT 20 U/L (<=34); Albumin, Serum 4.2 g/dL (3.5-5.0); Alkaline Phosphatase 75 U/L (35-104); Anion Gap 11 (5-15); BUN 16 mg/dL (4-19); BUN/Creat Ratio 19.5 RATIO (10-20); Calcium,Total 9.3 mg/dL (7.6-11.0); Carbon Dioxide 22.6 mmol/L (21.0-32.0); Chloride 105 mmol/L (98-108); Cholesterol 242 mg/dL (<=200); Globulin 2.9 g/dL (2.2-4.2); Glucose 98 mg/dL (70-99); Low Density Lipoprotein Calc. 173 mg/dL; Potassium 4.1 mmol/L (3.3-5.1); Triglycerides 132 mg/dL; Very Low Density Lipoprotein 26 mg/dL (5-40); cholesterol:hdl ratio screen 5.32
== END | disposition home or self-care (01) ==
LOC: MTLAB 07:48
PROVIDERS: PCP Internal Medicine; Referring Provider Internal Medicine; Visit Provider Internal Medicine
DX: I10 Essential (primary) hypertension (principal)
CPT/HCPCS: 36415; 80053; 80061; 85025